=== PATIENT | female | born 1960 | race Caucasian/White ===

== ENCOUNTER 2023-10-03 08:57 | Outpatient (CLI) | payer MEDICARE, MEDICAID, SELFPAY ==
--- NOTE | 2023-10-03 09:15 | CRLHL7_ITS ---
For Patients: As a result of the Century Cures Act, medical imaging exams and procedure reports are released immediately into your electronic medical record. You may view this report before your referring provider. If you have questions, please contact your health care provider. ULTRASOUND-GUIDED BREAST BIOPSY AND POST-BIOPSY DIGITAL MAMMOGRAM FOR BIOPSY MARKER PLACEMENT CLINICAL HISTORY: Suspicious taller than wide mass RIGHT breast. COMPARISON STUDIES: 09/26/2023. TECHNIQUE: Real-time ultrasound with image documentation was used for targeting the breast lesion. Core biopsy specimens were obtained using an automated gun with an 18-gauge biopsy needle. Post-biopsy CC and ML digital mammograms were obtained to document position of the biopsy marker. CONSENT and TIME OUT: The procedure, risks, and alternatives were explained to the patient and a consent was signed. [place] Protocol was followed including pre-procedure verification that relevant information/documentation was available, reviewed and properly matched to the patient; consent accurate and complete; and equipment and supplies available. Time Out was conducted just prior to starting procedure to verify the four required elements: patient identity, correct side/site marked (if applicable), procedure, relevant images/results properly labeled and displayed (if applicable). PROCEDURE: The patient was positioned supine on the ultrasound table. The breast was prepped with ChloraPrep. 7 cc of 1 percent lidocaine used for local anesthesia. Core samples were obtained. A sterile metal biopsy clip was placed percutaneously to liliana the lesion position within the breast. The specimens were placed in 10% formalin and sent to the pathology department. Pressure was held on the biopsy site until all bleeding subsided. The skin incision was closed with Steri-Strips. An ice pack was positioned over the biopsy site. Post-biopsy instructions were reviewed with the patient, and a written copy was given to her. LATERALITY: RIGHT breast. LESION: Hypoechoic and shadowing taller than wide mass measuring 11 x 7 x 7 millimeters at 1 o`clock 7 cm from the nipple. SUSPICION FOR MALIGNANCY: High. NUMBER OF SAMPLES: 5. BIOPSY CLIP SHAPE: Oval. PROXIMITY OF CLIP TO TARGET: Within the lesion. IMPRESSION: Ultrasound-guided breast biopsy. When the pathology report is available, an addendum to this report will be made. ACR not applicable Dictated by Steven Jacome MD @ 10/03/2023 10:16:00 AM jj/Dictated by: Steven Jacome MD @ 10/03/2023 10:16:00 AM (Electronically Signed)
--- NOTE | 2023-10-03 10:00 | CRLHL7_ITS ---
For Patients: As a result of the Century Cures Act, medical imaging exams and procedure reports are released immediately into your electronic medical record. You may view this report before your referring provider. If you have questions, please contact your health care provider. PLEASE SEE ULTRASOUND-GUIDED RIGHT BREAST BIOPSY PERFORMED SAME DAY CRL:[email or web address] busby/Dictated by: Steven Jacome MD @ 10/03/2023 10:16:00 AM (Electronically Signed)
== END 2023-10-03 08:58 | disposition home or self-care (01) ==
LOC: US 09:01
PROVIDERS: PCP Family Medicine; Visit Provider Family Medicine
DX: N63.10 Unspecified lump in the right breast, unspecified quadrant (principal); C50.911 Malignant neoplasm of unspecified site of right female breast; R92.8 Other abnormal and inconclusive findings on diagnostic imaging of breast
CPT/HCPCS: 19083; 77065; 88305; 88342; 88360; 88361; A4648; A4649

== ENCOUNTER 2023-10-19 08:35 | Day surgery (SDC) | payer MEDICARE, MEDICAID, SELFPAY ==
--- OUTSIDE RECORDS SUMMARY | 2023-10-19 08:39 | XMS_ITS | Clinical Summary ---
Author Organization [email or web address] [facility] Address [address] Care Team Providers Care Cafeteria Supervisor Name Role Phone Netta Mishra MD Primary Care Provider [phone] Allergies No known active allergies Medications Medication Sig Dispensed Refills Start Date End Date Status acetaminophen (TYLENOL EXTRA STRGTH) 500 mg tabletIndications:A cute postoperative pain Take 2 tablets by mouth 3 times daily. Max acetaminophen dose: 4000mg in 24 hrs. 50 tablet 11/15/2019 Active WalkerIndications:A cute postoperative pain Rolling walker for home use for 99 months. 1 Device 11/16/2019 Active ARIPiprazole (ABILIFY) 20 mg tabletIndications:G AD (generalized anxiety disorder),Major depressive disorder with current active episode, unspecified depression episode severity, unspecified whether recurrent Take 1 Tablet (20 mg) by mouth once daily. 90 Tablet 09/07/2023 Active benztropine (COGENTIN) 0.5 mg tabletIndications:E xtrapyramidal symptom Take 1 Tablet (0.5 mg) by mouth two times daily. 180 Tablet 09/07/2023 Active FLUoxetine (PROZAC) 40 mg capsuleIndications: IVETTE (generalized anxiety disorder),Major depressive disorder with current active episode, unspecified depression episode severity, unspecified whether recurrent Take 1 Capsule (40 mg) by mouth once daily. 100 Capsule 3 09/07/2023 Active gabapentin (NEURONTIN) 300 mg capsuleIndications: Lumbar radiculopathy Take 1 Capsule (300 mg) by mouth at bedtime. 30 Capsule 11 09/07/2023 Active levothyroxine (SYNTHROID) 175 mcg tabletIndications:H ypothyroidism (acquired) Take 1 Tablet (175 mcg) by mouth before breakfast. 90 Tablet 09/07/2023 Active atorvastatin (LIPITOR) 10 mg tabletIndications:H yperlipidemia, unspecified hyperlipidemia type Take 1 Tablet (10 mg) by mouth at bedtime. 100 Tablet 3 09/07/2023 Active Active Problems Problem Noted Date Diagnosed Date STENOSIS, LUMBAR W NEUROGENIC CLAUDICATION 11/11 Anxiety and depression 11/12/2019 Chronic midline low back pain without sciatica 0 09/25/2019 Left leg weakness 09/25/2019 Hypothyroidism Resolved Problems Problem Noted Date Diagnosed Date Resolved Date Spinal stenosis 09/25/2019 11/12/2019 Anxiety 11/12/2019 Depression 11/12/2019 Encounters Date Type Department Care Team Description 10/18/2023 Telephone [facility] [[email or web address] [address] [place] [address] Robina Reynaga MD Outside Order 10/16/2023 8:20 AM CDT Preop Visit [facility] [[email or web address] [address] [place] [address] Aliyah Medina DO Preoperative Exam (10/19/23, [facility], Dr. Reynaga) 10/16/2023 Travel 10/10/2023 4:00 PM CDT Office Visit [address] [place] [address] Robina Reynaga MD Consult (Breast cancer) 10/10/2023 Travel 10/03/2023 Lab Requisition [facility] [phone] Unknown, Doctor 10/03/2023 Orders Only [facility] [[email or web address]] [address] [place] [address] Netta Mishra MD 3 scans: (3-Ord) DANIELE US GUIDED BREAST BIOPSY RT, 10/03/2023 09/26/2023 2:30 PM CDT Ancillary Procedure [facility] [[email or web address]] [address] [place] [address] 09/26/2023 2:00 PM CDT Ancillary Procedure [facility] [[email or web address]] [address] [place] [address] 09/26/2023 Ancillary Orders [facility] [[email or web address]] [address] [place] [address] Netta Mishra MD 09/26/2023 Travel 09/14/2023 3:20 PM CDT Ancillary Procedure [facility] [[email or web address]] [address] [facility] [facility] [address] 09/14/2023 Travel 09/08/2023 Telephone [facility] [[email or web address]] [address] [facility] [place] [address] Netta Mishra MD Results 09/07/2023 2:20 PM CDT Office Visit [facility] [[email or web address]] [address] [facility] [address] Netta Mishra MD Medication Management 09/07/2023 Travel 08/30/2023 Refill [facility] [[email or web address]] [address] [facility] [address] Netta Mishra MD Refill Request (Aripiprazole) 07/31/2023 Refill [facility] [[email or web address]] [address] [facility] [place] [address] Netta Mishra MD Refill Request (Aripiprazole, Levothyroxine, Benztropine, Fluoxetine) from Last 3 Months Immunizations Name Administration Dates Next Due COVID-19 vaccine (Dajuan-J&J) GIOVANNA LEE COVID-19 vaccine (MettlBio NTech 30mcg/0.3mL) 12YO+ BIVALENT GIOVANNA LEE 07/28/2022 COVID-19 vaccine (MettlBio NTech 30mcg/0.3mL) 12YO+ AV-SUCROSE GIOVANNA LEE 07/21/2021 Influenza, IIV4 02/21/2019 Tdap 07/17/2020 Zoster (Shingrix-RZV, recombinant) 07/21/2021, Family History Medical History Relation Name Comments Diabetes Brother Diabetes Father Cancer-breast No Family History Relation Name Status Comments Brother Father Social History Tobacco Use Types Packs/Day Years Used Date Smoking Tobacco: Former Cigarettes 1 15 1 983 - 1998 Smokeless Tobacco: Never Tobacco Cessation:Counseling Given: Yes Alcohol Use Standard Drinks/Week Comments Not Currently 0 (1 standard drink = 0.6 oz pur e alcohol) PHQ-2 Answer Date Recorded PHQ-2 TOTAL SCORE 0 09/07/2023 Social Connections Answer Date Recorded Frequency of Communication with Friends and Fami ly 0 09/07/2023 Financial Resource Strain Answer Date R ecorded Difficulty of Paying Living Expenses 3 09/07/2023 Difficulty of Paying Living Expenses Not on file 09/07/2023 Food Insecurity Answer Date Recorded Worried About Running Out of Food in the Last Ye ar 1 09/07/2023 Transportation Needs Answer Date Record ed Lack of Transportation (Medical) 1 09/07/2023 Housing Stability Answer Date Recorded Unable to Pay for Housing in the Last Year 1 09/07/2023 Sex and Gender Information Value Date Recorded Sex Assigned at Not on file Gender Identity Not on file Sexual Orientation Not on file Obstetrics History Last Filed Vital Signs Vital Sign Reading Time Taken Comments Blood Pressure 138/73 10/16/2023 8:15 AM CDT Pulse 80 10/16/2023 8:15 AM CDT Temperature 36.8 ??C (98.2 ??F) 10/16/2023 8:15 AM CD T Respiratory Rate 16 11/16/2019 7:50 AM CDT Oxygen Saturation 97% 10/16/2023 8:15 AM CDT Inhaled Oxygen Concentration - - Weight 126.1 kg (278 lb) 10/16/2023 8:15 AM CDT Height 177.8 cm (5' 10) 10/16/2023 8:15 AM CDT Body Mass Index 39.89 10/16/2023 8:15 AM CDT Plan of Treatment Health Maintenance Due Date Last Done Comments Pneumococcal series for age 6-64 (1 of 2 - PCV) 1966 Fecal testing sDNA-FIT (Cologuard) for age 45-75 2005 COVID-19 vaccine series (2022- season) 2022 07/28/2022, 07/21/2021, 08/01/2020 Influenza for age 50-64 10/29/2023 02/21/2019 Depression screening for age 12+ 09/07/2024 09/08/2023, 09/07/2023, 07/28/2022, Additional history exists Mammogram for age 45-75 09/25/2024 09/26/19 24, 09/14/2023, 08/26/2022, Additional history exists BMI (ht and wt on same day) for age 18+ 10/15/2024 10/16/2023, 07/28/2022, 07/21/2021, Additional history exists Lipids for age 45-75 09/06/2028 09/07/2023, 07/28/2022, 07/21/2021, Additional history exists Tetanus booster 07/17/2030 07/17/2020 Hepatitis C screening for ag e 18-79 Completed 07/17/2020 Tdap Completed 07/17/2020 Zoster (shingles) series for age 50+ Completed 07/21/2021, 07/17/2020 HIV for age 15-65 Completed 07/28/2022 Pap test for age 21-65 Discontinued Medical Devices Implanted Type Area Hand Cloth Folder Device Identifier Shelf Expiration Date Model / Serial / Lot [id number] 1-4mm 60cc Medtronic Fine Canclls Freeze Dried Implanted:Qty: 1 on 11/12/2019 by Bonilla Gee MD at [facility] Explanted:at [facility] (Quantity not on file) Spine Medtronic Spine/Ortho 04/07/2024 [id number]# / [id number] / Screw Lmbr Post 8.5x45mm Solera 5.5/6 Va Cocr - [id number] Implanted:Qty: 2 on 11/12/2019 by Bonilla Gee MD at [facility] Spine Medtronic Spine/Ortho [id number]# / / Spacer Lmbr 60y40uf Capstone Tlif Peek - [id number] Implanted:Qty: 1 on 11/12/2019 by Bonilla Gee MD at [facility] Spine Medtronic Spine/Ortho [id number]# / / [id number] ne Matrix 3cc Linda Dbf Putty Dbm Implanted:Qty: 1 on 11/12/2019 by Bonilla Gee MD at [facility] Explanted:at [facility] (Quantity not on file) Spine Medtronic Spine/Ortho 10/06/2021 [id number] / [id number] / [id number] 1-4mm 60cc Medtronic Fine Canclls Freeze Dried Implanted:Qty: 1 on 11/12/2019 by Bonilla Gee MD at [facility] Explanted:at [facility] (Quantity not on file) Spine Medtronic Spine/Ortho 04/07/2024 [id number]# / [id number] / [id number] ne Matrix 5cc Major Plus Paste Dbm Implanted:Qty: 1 on 11/12/2019 by Bonilla Gee MD at [facility] Explanted:at [facility] (Quantity not on file) Spine Medtronic Spine/Ortho 05/19/2021 [id number]# / [id number] / Spacer Peek Md 16mm 8deg Perimeter Alif Peek - [id number] Implanted:Qty: 1 on 11/12/2019 by Bonilla Gee MD at [facility] Spine Medtronic Spine/Ortho 04/27/2023 [id number]# / / [id number] Spacer Lmbr Md 8mm 8deg Perimeter Alif Peek - [id number] Implanted:Qty: 1 on 11/12/2019 by Bonilla Gee MD at [facility] Spine Medtronic Spine/Ortho 01/12/2023 [id number]# / / [id number] Set Screw Lmbr Ant 5.5mm Solera Break Off - [id number] Implanted:Qty: 9 on 11/12/2019 by Bonilla Gee MD at [facility] Spine Medtronic Spine/Ortho [id number]# / / Screw Lmbr Post 6.5x45mm Solera 5.5/6 Va Cocr - [id number] Implanted:Qty: 2 on 11/12/2019 by Bonilla Gee MD at [facility] Spine Medtronic Spine/Ortho [id number]# / / Screw Lmbr Post 7.5x45mm Solera 5.5/6 Va Cocr - [id number] Implanted:Qty: 5 on 11/12/2019 by Bonilla Gee MD at [facility] Spine Medtronic Spine/Ortho [id number] 5# / / Guicho Lmbr 500x5.5mm Solera 5.5/6 Stra Titnm Alloy - [id number] Implanted:Qty: 1 on 11/12/2019 by Bonilla Gee MD at [facility] Spine Medtronic Spine/Ortho [id number] # / / Explanted Type Area Hand Cloth Folder Device Identifier Shelf Expiration Date Model / Serial / Lot Explant Explanted:Qty: 1 on 11/12/2019 at [facility] Description:2 RODS, 6 SCREWS , 6 SET SCREWS Procedures Procedure Name Priority Date/Time Associated Diagnosis Comments LAB TRACKING EVENT Routine 10/03/2023 9: 45 AM CDT PATH BREAST CORE BIOPSY Routine 10/03/2023 9:45 AM CDT XR MAMMO POST CLIP PLCMT RT Routine 10/03/2023 12:00 AM CDT Abnormal mammogram US BIOPSY BREAST NEEDLE W DONATO W GUIDE RIGHT ANDREY 10/03/2023 12:00 AM CDT Abnormal mammogram US BREAST UNILATERAL RIGHT LIMITED ANDREY 09/26/2023 2:33 PM CDT Abnormal mammogram XR MAMMO EDMOND UNI ADDL VIEWS RIGHT ANDREY 09/26/2023 2:14 PM CDT Abnormal mammogram XR MAMMO BILAT SCREENING Routine 09/14/2023 3:24 PM CDT Visit for screening mammogram GLUCOSE, RANDOM Routine 09/07/2023 3:12 PM CDT Diabetes mellitus screening LIPID PANEL W REFLEX MEASURED LDL Routine 09/07/2023 3:12 PM CDT Hyperlipidemia, unspecified hyperlipidemia type LC HIV-1/O/2, 4TH GENERATION Routine 07/28/2022 3:00 PM CDT Screening for HIV (human immunodeficiency virus) ANTI HCV Add On 07/17/2020 1:34 PM CDT Routine general medical examination at a health care facility from Last 3 Months or Most Recently Relevant to Health Maintenance Results * LAB TRACKING EVENT (10/03/2023 9:45 AM CDT) Other (Other) Client Collect / Unknown 10/03/2023 9:45 AM CDT 10/03/2023 10:08 PM CDT Doctor Unknown LAB B[facility] [address] [place] [address], * PATH BREAST CORE BIOPSY (10/03/2023 9:45 AM CDT) Case Report Pathology Report ?Case: [id number] ? Authorizing Provider: ??Unknown, Doctor ?Collected: ? 10/03/2023 0945 ? Ordering Location: ? [facility] ?Received: ?10/04/2023 09 ? Pathologist: ? Jerrica Krishnamurthy, ? MD ? Specimen: ?Right Breast Core Ultrasound Biopsy ? 10/06/2023 10:19 AM [facility] Amendment 10/06/2023 - Amendment issued to incorporate ancillary studies. 10/06/2023 10:19 AM [facility] Final Diagnosis A) RIGHT BREAST, 1:00, 7 CM FROM NIPPLE, ULTRASOUND-GUIDED CORE BIOPSY: 1. 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 a. Lul grade: II of III; Vallecito score: 6 of 9 ?? b. Angio-lymphatic invasion: Absent ?? c. Associated DCIS: Present ?? d. Subtype: Cribriform and Solid ? e. Grade of DCIS: 2 of 3 2. Breast Ancillary Testing: ?a. Hormone Receptors: ?Estrogen receptor: Positive (97%, strong staining) ?Progesterone receptor: Positive (86%, moderate staining) ?b. HER2 by IHC: Negative (1+ by manual morphometry) ?c. Ki-67: 11% 10/06/2023 10:19 AM [facility] Amendment electronically signed by Simba Aguero MD on 10/06/2023 at 10:19 AM Comment A) This is an image-guided breast biopsy. The pathologic findings should be correlated with radiologic and clinical findings prior to treatment decisions. Case seen in consultation with Dr. Aguero. 10/06/2023 10:19 AM [facility] Clinical Information 11 x 7 x 7 mm, irregular, spiculated and hypoechoic right breast mass at 1:00, 7 cm from the nipple. Clip shape: Oval (within lesion). 10/06/2023 10:19 AM [facility] Gross Description A) Label: Patient's name and right breast 1:00 7 cm FN Description: 5 Fibrofatty core biopsies Size: 1.1-1.7 cm in length by 0.2 cm in diameter Ink color: Green The specimen is submitted in toto in one cassette. Cold ischemic time: Less than 60 minutes, meets current ASCO/CAP guidelines. ?? The specimen was fixed in formalin for a minimum of 6 hours and not longer than 72 hours. TLF 10/04/2023 10/06/2023 10:19 AM [facility] Microscopic Description The final diagnosis is based on microscopic examination of appropriate sections of all specimens. A) The presence of green ink is confirmed on tissue sections. An E-cadherin immunohistochemical stain was performed on block A1 with appropriate controls and shows strong, diffuse membranous staining within the tumor cells, supporting a ductal phenotype. 10/06/2023 10:19 AM [facility] SYNOPTIC REPORTING Breast Biomarker Reporting Template BREAST BIOMARKER REPORTING TEMPLATE - A Protocol posted: 02/08/2023 ?? Test(s) Performed: ? Estrogen Receptor (ER) Status: ?Positive (greater than 10% of cells demonstrate nuclear positivity) ? Percentage of Cells with Nuclear Positivity: ?97 % ? Average Intensity of Staining: ?Strong ? Test Type: ?Laboratory-develope d test ? Primary Antibody: ?SP1 ?? Test(s) Performed: ? Progesterone Receptor (PgR) Status: ?Positive ? Percentage of Cells with Nuclear Positivity: ?86 % ? Average Intensity of Staining: ?Moderate ? Test Type: ?Laboratory-develope d test ? Primary Antibody: ?16 ?? Test(s) Performed: ? HER2 by Immunohistochemistry: ?Negative (Score 1+) ? Test Type: ?Laboratory-develope d test ? Primary Antibody: ?4B5 ?? Test(s) Performed: ?Ki-67 ? Ki-67 Percentage of Positive Nuclei: ?11 % ? Primary Antibody: ?MIB1 ?? Cold Ischemia and Fixation Times: ?Meet requirements specified in latest version of the ASCO / CAP Guidelines ?? Testing Performed on Block Number(s): ?A1 METHODS ?? Fixative: ?Formalin ?? Image Analysis: ?Performed ? Method: ?Aperio morphometric analysis ? Biomarkers Scored by Image Analysis: ?ER ? Biomarkers Scored by Image Analysis: ?PgR ? Biomarkers Scored by Image Analysis: ?Ki-67 ?? Comment(s): ?Ki67 11% out of 1,478 nuclei analyzed 10/06/2023 10:19 AM CDT [facility] Additional Information Patients with breast cancers that are HER2 IHC 3+ or IHC 2+/LINA amplified may be eligible for several therapies that disrupt HER2 signaling pathways. Invasive breast cancers that test 'HER2-negative' (IHC 0, 1+ or 2+/LINA not-amplified) are more specifically considered 'HER2-negative for protein overexpression/gene amplification' since non-overexpressed levels of the HER2 protein may be present in these cases. Patients with breast cancers that are HER2 IHC 1+ or IHC 2+/LINA not amplified may be eligible for a treatment that targets non-amplified/non-ove rexpressed levels of HER2 expression for cytotoxic drug delivery (IHC 0 results do not result in eligibility currently). Interpreted at [facility], Central Laboratory - [address], [place] [address] Immunohistochemistry controls were reviewed and approved by the pathologist during this examination. 10/06/2023 10:19 AM CDT [facility] Other (Right Breast Core Ultrasound Biopsy) 10/03/2023 9:45 AM CDT 10/04/2023 9:07 AM CDT Doctor Unknown PATHOLOGY/CYTOLOGY [facility] [address] [place] [address], [place] * US BIOPSY BREAST NEEDLE W DONATO W GUIDE RIGHT (10/03/2023 12:00 AM CDT) Anatomical Region Laterality Modality Breast Right Right Ultrasound Netta Mishra MD US * XR MAMMO POST CLIP PLCMT RT (10/03/2023 12:00 AM CDT) Anatomical Region Laterality Modality BREASTS N/A Mammography Netta Mishra MD MAMMO * US BREAST UNILATERAL RIGHT LIMITED (09/26/2023 2:33 PM CDT) Anatomical Region Laterality Modality BREASTS, Breast Right Right Ultrasound Narrative 09/26/2023 3:57 PM CDT For Patients: As a result of the Cures Act, medical imaging exams and procedure reports are released immediately into your electronic medical record. ??You may view this report before your referring provider. ?? If you have questions, please contact your health care provider. RIGHT BREAST ULTRASOUND, 09/26/2023 PLEASE SEE [id number] FOR DIGITAL RIGHT MAMMOGRAM SAME DAY. Netta Mishra MD US * XR MAMMO EDMOND UNI ADDL VIEWS RIGHT (09/26/2023 2:14 PM CDT) Anatomical Region Laterality Modality BREASTS, Breast Right Mammograph y 09/26/2023 2:50 PM CDT Impressions 09/26/2023 3:57 PM CDT Suspicious 11 millimeter mass RIGHT breast 1 o'clock 7 cm from the nipple. RECOMMENDATIONS: Ultrasound-guided core needle biopsy. Results and recommendations discussed with the patient. BI-RADS Category 4: Suspicious Dictated by: Steven Jacome MD @09/26/2023 2:50:20 PM / EVAN:kehinde PATIENTS: You will also receive a letter with your examination results in an easy to read format. ??If you have questions about your results, please contact your referring provider. Narrative 09/26/2023 3:57 PM CDT For Patients: As a result of the Cures Act, medical imaging exams and procedure reports are released immediately into your electronic medical record. ??You may view this report before your referring provider. ?? If you have questions, please contact your health care provider. ADDITIONAL VIEWS RIGHT DIGITAL MAMMOGRAM USING TOMOSYNTHESIS AND COMPUTER-AIDED DETECTION, 09/26/2023 RIGHT BREAST ULTRASOUND, 09/26/2023 CLINICAL HISTORY: RIGHT breast mass/asymmetry. COMPARISON: 09/14/2023. TECHNIQUE: Digital RIGHT mammogram in two projections with computer-aided detection. Tomosynthesis was used in this interpretation. Real-time ultrasound imaging of RIGHT breast with imaging documentation. BREAST COMPOSITION: There are areas of scattered fibroglandular density. FINDINGS: 3D spot compression CC/MLO RIGHT breast mammogram images submitted. Suspicious mass with architectural distortion RIGHT breast upper inner quadrant. No suspicious calcifications. Targeted RIGHT breast ultrasound 1 o'clock 7 cm from the nipple performed. In this location, there is a taller than wide spiculated hypoechoic mass measuring 11 x 7 x 7 millimeters. Netta Mishra MD MAMMO * XR MAMMO BILAT SCREENING (09/14/2023 3:24 PM CDT) Anatomical Region Laterality Modality BREASTS, Breast Left, Breast Right Bilateral Mammography 09/14/2023 3:55 PM CDT Impressions 09/14/2023 4:14 PM CDT RIGHT breast asymmetry/mass. RECOMMENDATIONS: Additional mammographic views of the RIGHT breast including 3D spot-compression CC/MLO. RIGHT breast ultrasound may also be required. A member of the breast health care team will contact the patient to schedule the required additional imaging appointment(s). BI-RADS Category 0: Incomplete: Need Additional Imaging Evaluation and/or Prior Mammograms for Comparison Dictated by: Steven Jacome MD @09/14/2023 3:55:02 PM/shawna PATIENTS: You will also receive a letter with your examination results in an easy to read format. ??If you have questions about your results, please contact your referring provider. Narrative 09/14/2023 4:14 PM CDT For Patients: As a result of the 21st Century Cures Act, medical imaging exams and procedure reports are released immediately into your electronic medical record. ??You may view this report before your referring provider. ?? If you have questions, please contact your health care provider. BILATERAL DIGITAL SCREENING MAMMOGRAM WITH COMPUTER-AIDED DETECTION AND TOMOSYNTHESIS 09/14/2023 CLINICAL HISTORY: Routine screening exam. COMPARISON: 08/26/2022, 08/25/2021, 08/03/2020, 07/24/2020. TECHNIQUE: Digital mammogram in CC and MLO projections including computer-aided detection (CAD). Tomosynthesis was used in this interpretation. BREAST COMPOSITION: There are scattered areas of fibroglandular density. FINDINGS: RIGHT Breast: Focal asymmetric density upper RIGHT breast 7 cm from the nipple. LEFT Breast: No suspicious findings. Netta Mishra MD MAMMO * (ABNORMAL) LIPID PANEL W REFLEX MEASURED LDL (09/07/2023 3:12 PM CDT) CHOLESTEROL,TOTAL 320(H) 100 - 199 mg/dL 09/08/2023 1:27 AM CDT [facility] Comment: Cholesterol, Total Reference Ranges Desirable <200 mg/dL Borderline 200-239 mg/dL High >=240 mg/dL TRIGLYCERIDES 306(H) <150 mg/dL 09/08/2023 1:27 AM CDT [facility] HDL CHOLESTEROL 40(L) >40 mg/dL 1:27 AM CDT [facility] NON-HDL CHOLESTEROL 280(H) <145 mg/dl 09/08/2023 1:27 AM T [facility] CHOL/HDL RATIO 8.00(H) <4.50 09/08/2023 1:27 AM CDT [facility] LDL CHOLESTEROL 219(H) <=130 mg/dL 09/08/2023 1:27 AM T [facility] VLDL CHOLESTEROL 61(H) <=30 mg/dL 09/08/2023 1:27 AM T [facility] PROVIDER ORDERED STATUS RANDOM 09/08/2023 1:27 AM T [facility] Blood BLOOD SPECIMEN / Unknown Venipuncture / Unknown 09/07/2023 3:12 PM CDT 09/07/2023 3:13 PM CDT Netta Mishra MD CHEMISTRY [facility] [address] [place] [address], [place] * GLUCOSE, RANDOM (09/07/2023 3:12 PM CDT) GLUCOSE,RANDOM 85 70 - 139 mg/dL 09/07/2023 3:21 PM CDT [facility] Blood BLOOD SPECIMEN / Unknown Venipuncture / Unknown 09/07/2023 3:12 PM CDT 09/07/2023 3:13 PM CDT Netta Mishra MD CHEMISTRY Performing Organization Address City/[facility]/ZIP Co de Phone Number [facility] [address] [place] [address], [place] [phone] * LC HIV-1/O/2, 4TH GENERATION (07/28/2022 3:00 PM CDT) HIV Scr 4th Gen Non Reactive Non Reactive 07/30/2022 11:08 AM CDT [facility] Comment: HIV Negative HIV-1/HIV-2 antibodies and HIV-1 p24 antigen were NOT detected. There is no laboratory evidence of HIV infection. Blood BLOOD SPECIMEN / Unknown Venipuncture / Unknown 07/28/2022 3:00 PM CDT 07/28/2022 3:01 PM CDT Narrative [facility] ([facility] - 07/30/2022 11:08 AM CDT Performed at: ??[address] - [address] ??[phone] Liner Checker: Nadir Oliveros MD, Phone: ??[phone] Netta Mishra MD LABORATORY [facility] ([facility]) [address] [place] [phone], * ANTI HCV (07/17/2020 1:34 PM CDT) HEPATITIS C ANTIBODY Non-React aime Non-React aime 07/17/2020 10:22 PM CDT [facility] Comment:Antibodies to HCV no t detected; does not exclude the possibility of exposure to HCV. Blood BLOOD SPECIMEN / Unknown Venipuncture / Unknown 07/17/2020 1:34 PM CDT 07/17/2020 1:34 PM CDT Netta Mishra MD SEND OUTS [facility] [address] [place] [address], from Last 3 Months or Most Recently Relevant to Health Maintenance Advance Directives * Full Code (Latest Code Status on File) Date Activated Date Inactivated Comments 11/12/2019 4:09 PM 11/16/2019 5:32 PM Question Answer Comments Code Status Discussion: Not Discussed Care Teams Cafeteria Supervisor Relationship Specialty Start Date End Date Netta Mishra MD [address] [place] [address] PCP - General Family Practice 05/06/19
[2023-10-19 09:02] VITALS: BMI 39.8
[2023-10-19 09:06] VITALS: BP 141/78; PULSE 84; RESP 20; TEMP 36.5
--- NOTE | 2023-10-19 09:08 | SUR.PREOP ---
pt appears to have poor personal hygeine, very long toenails, unkempt
[2023-10-19] MEDS: LACTATED RINGERS 1000 ML 1,000 ML 100 ML IV (09:10)
[2023-10-19] MEDS: SODIUM CHLORIDE 0.9 % (FLUSH) 10 ML SYRINGE IVF (09:21)
--- NOTE | 2023-10-19 10:00 | CRLHL7_ITS ---
For Patients: As a result of the Century Cures Act, medical imaging exams and procedure reports are released immediately into your electronic medical record. You may view this report before your referring provider. If you have questions, please contact your health care provider. INDICATION: Right-sided breast cancer. Injection for sentinel lymph node scintigraphy. PROCEDURE: Informed consent was obtained by the on-site staff. They discussed the risks and benefits of the procedure. The patient agreed to proceed. [place] Protocol: A. Preprocedure verification complete: Yes 1) Relevant information/documentation available, reviewed and properly matched to the patient; 2) Consent accurate and complete; 3) Equipment and supplies available. B. Site marking complete: Yes Site marked if not in continuous attendance with patient. C. TIME OUT completed: Yes Time Out was conducted just prior to starting procedure to verify the eight required elements: 1) Patient identity, 2) Consent accurate and complete, 3) Position, 4) Correct side/site marked (if applicable), 5) Procedure, 6) Relevant images/results properly labeled and displayed (if applicable), 7) Antibiotics/irrigation fluids (if applicable), 8) Safety precautions, 9) Laboratory results were reviewed. Utilizing sterile technique and 1% Xylocaine for local anesthetic, 500 microcuries of technetium-filtered sulfur colloid was injected within an intradermal location superolateral to the right nipple-areolar complex. The patient tolerated the injection well. No immediate complications were documented. No subsequent imaging. IMPRESSION: Technically successful right breast injection for sentinel lymph node scintigraphy. OSWALDO SAL M.D. Diagnostic/Nuclear Medicine Radiologist [email or web address] Transcribed: 12:[address]/Dictated by: Oswaldo Sal MD @ 10/19/2023 10:56:00 AM (Electronically Signed)
--- NOTE | 2023-10-19 10:03 | W.PM.H&PU ---
History & Physical Update History & Physical Update H&P Reviewed and patient assessed: No changes noted
--- NOTE | 2023-10-19 10:04 | P.GSOP_ITS ---
Operative Note Date of procedure: 10/19/23 Pre-op diagnosis: Right-sided invasive ductal breast cancer, ERPR positive, HER2 negative Post-op diagnosis: Same Type of Procedure: 1. Right lumpectomy 2. Right axillary sentinel node biopsy Indications: The patient is a 63-year-old female who was found on screening mammogram to have a mass in the right breast. This was biopsied and found to be invasive ductal carcinoma, ERPR positive, HER2 negative. We discussed options for management and she elected to proceed with lumpectomy and sentinel node biopsy. Procedure Description: After discussion of risks and benefits, the patient was brought to the operating room and placed supine on the operating table. General anesthesia was induced. 1 hr to incision, I injected radiotracer into the dermis the [right/left] breast just above the areola. 10 min prior to the incision I injected 3 ml isosulfan blue dye into the dermis above the areola. This was massaged for 3 min. Once this was completed, the area was prepped and draped sterilely. A time-out was then completed. I began on the right. Incision was made in the upper inner quadrant over the mass after injecting local anesthetic into the skin and subcutaneous tissue. Dissection was taken down into the subcutaneous tissue. The wire was then pulled into the incision. The breast tissue around the wire was dissected free using cautery down to fascia. The specimen was inked for margins and then sent to mammography and pathology. On mammographies, the clip and wire were noted. The lesion was seen on pathology however was close the superior margin. An additional rim of tissue at the superior aspect of the lumpectomy cavity was then removed. This was again inked for margins and sent to pathology in formalin. The lumpectomy cavity appeared hemostatic. Travis was placed within the wound. Clips were placed to liliana the margins of the lumpectomy cavity for radiation planning. Attention was then turned to the sentinel lymph node biopsy. Incision was made in the axilla after injecting local anesthetic into the skin and subcutaneous tissue. Incision was oriented just below the axillary hairline. Dissection was taken down into the subcutaneous fat. The probe was brought into the field. A strong signal was noted and dissection was taken down through the clavipectoral fascia into the axillary fat. The probe was used to identify a blue node and this was carefully dissected free of the surrounding fat using cautery. The signal was measured at 2100. The probe was placed back into the wound bed and there was a small blue lymphatic channel leading to an area which also had a strong signal. This was dissected free. Signal was measured ex vivo at 1500. The probe was placed back into the axilla. No further signal was noted, though there appeared to be a small lymph node that had been transected. This node was not blue. It was, however removed and sent with the axillary sentinel lymph nodes to pathology. There were no further blue lymphatics noted. Hemostasis again appeared excellent. Travis was placed in the axillary wound bed. The wounds were again examined and appeared to be hemostatic. They were closed with 3-0 Vicryl dermal and 4-0 Monocryl running subcuticular suture. Sterile d ressing was applied. Instrument sponge and needle counts were correct. The patient tolerated the procedure well. ? The patient was then woken and transported to the recovery area in stable condition. Findings: 1. Right breast mass with the clip in wire noted on mammography in the lumpectomy specimen 2. Right breast mass lumpectomy specimen with close superior margin, reexcised Anesthesia: MAC Surgeon: Robina Reynaga MD Estimated blood loss (mL): 10 Additional Specimen Information: 1. Right breast lumpectomy 2. Right breast re-excision superior margin 3. Right axillary sentinel lymph nodes Condition: stable Disposition: same day [place] Node Biopsy for Breast Cancer Operation Performed with Curative Intent: Yes Tracers used to Identify sentinel nodes in the upfront surgery (non-neoadjuvant) setting: Dye and Radioactive Tracer Tracers used to identify sentinel nodes in the neoadjuvant setting: N/A All nodes (colored or non-colored) present at the end of a dye filled lymphatic channel were removed: Yes All significantly radioactive nodes were removed: Yes All palpably suspicious nodes were removed: Yes Biopsy proven positive nodes marked with clips prior to chemotherapy were identified and removed: Not Applicable
--- NOTE | 2023-10-19 10:15 | CRLHL7_ITS ---
For Patients: As a result of the Century Cures Act, medical imaging exams and procedure reports are released immediately into your electronic medical record. You may view this report before your referring provider. If you have questions, please contact your health care provider. RIGHT BREAST WIRE LOCALIZATION USING ULTRASOUND GUIDANCE CLINICAL HISTORY: Biopsy-proven malignancy. LATERALITY: RIGHT breast. LESION: Hypoechoic shadowing mass measuring 11 x 7 x 7 mm 1 o`clock 7 cm from the nipple RIGHT breast. LOCALIZATION WIRE: [place] hookwire. TECHNIQUE: The localization wire was placed using real-time ultrasound guidance with image documentation. Cranial-caudal and medial-lateral digital mammograms were obtained after localization wire placement. CONSENT and TIME OUT: The procedure, risks, and alternatives were explained to the patient and a consent was signed. [place] Protocol was followed including pre-procedure verification that relevant information/documentation was available, reviewed and properly matched to the patient; consent accurate and complete; and equipment and supplies available. Time Out was conducted just prior to starting procedure to verify the four required elements: patient identity, correct side/site marked (if applicable), procedure, relevant images/results properly labeled and displayed (if applicable). PROCEDURE: The skin was prepped with ChloraPrep and 6 cc of 1% lidocaine was injected for local anesthesia. The localization wire was placed within or near the targeted breast lesion using ultrasound guidance. The patient tolerated the procedure well. PROXIMITY OF WIRE TO LESION: The wire is located within the lesion adjacent to the clip. IMPRESSION: Successful breast wire localization. ACR not applicable Dictated by Steven Jacome MD @ 10/19/2023 11:26:00 AM /jeni/adalberto SP/Dictated by: Steven Jacome MD @ 10/19/2023 11:25:00 AM (Electronically Signed)
--- NOTE | 2023-10-19 11:00 | CRLHL7_ITS ---
For Patients: As a result of the Cures Act, medical imaging exams and procedure reports are released immediately into your electronic medical record. You may view this report before your referring provider. If you have questions, please contact your health care provider. RIGHT BREAST SPECIMEN CLINICAL HISTORY: RIGHT breast cancer. COMPARISON: 09/26/2023. FINDINGS: Two views of the RIGHT breast specimen submitted. The specimen contains the localization wire, the biopsied mass and the biopsy clip. IMPRESSION: Specimen contains the localization wire, the biopsied mass and the biopsy clip. ACR not applicable. Dictated by Steven Jacome MD @ 10/20/2023 9:21:02 AM /jeni/charisma SP/Dictated by: Steven Jacome MD @ 10/20/2023 9:21:00 AM (Electronically Signed)
--- NOTE | 2023-10-19 11:00 | CRLHL7_ITS ---
For Patients: As a result of the Century Cures Act, medical imaging exams and procedure reports are released immediately into your electronic medical record. You may view this report before your referring provider. If you have questions, please contact your health care provider. PLEASE SEE RIGHT BREAST ULTRASOUND-GUIDED WIRE LOCALIZATION OF SAME DAY FOR FULL REPORT. CRL:sp/francoise SP/Dictated by: Steven Jacome MD @ 10/19/2023 11:20:00 AM (Electronically Signed)
[2023-10-19] MEDS: ISOSULFAN BLUE 5 ML VIAL INJECTION (11:30)
[2023-10-19] MEDS: CEFAZOLIN 2 GM INJ IVP (11:35)
[2023-10-19] MEDS: BUPIVACAINE 0.25% 30 ML INJECTION (11:50)
[2023-10-19] MEDS: LIDOCAINE 1% MDV 20 ML INJECTION (11:50)
--- NOTE | 2023-10-19 11:51 | W.ANESCHARGE ---
Anesthesia Charges Start Date/Time Anesthesia Start Date: 10/19/23 Anesthesia Start Time: 11:25 Stop Date/Time Anesthesia Stop Date: 10/19/23 Anesthesia Stop Time: 13:13
[2023-10-19 13:15] VITALS: BP 121/70; PULSE 69; RESP 16; TEMP 36.3; O2SAT 92
--- NOTE | 2023-10-19 13:15 | W.ANESCHARGE ---
Anesthesia Charges Start Date/Time Anesthesia Start Date: 10/19/23 Anesthesia Start Time: 11:25 Stop Date/Time Anesthesia Stop Date: 10/19/23 Anesthesia Stop Time: 13:13
--- NOTE | 2023-10-19 13:17 | W.ANESCHARGE ---
Anesthesia Charges Start Date/Time Anesthesia Start Date: 10/19/23 Anesthesia Start Time: 11:25 Stop Date/Time Anesthesia Stop Date: 10/19/23 Anesthesia Stop Time: 13:13
[2023-10-19 13:30] VITALS: BP 136/69; PULSE 67; RESP 16; O2SAT 93
[2023-10-19 13:46] VITALS: BP 134/71; PULSE 74; RESP 16; TEMP 36.3; O2SAT 93
--- NOTE | 2023-10-19 14:12 | SUR.PHASEII ---
Noted pt clothing very dirty and damp. underwear appeared to be smeared with stool.
== END 2023-10-19 14:30 | disposition home or self-care (01) ==
PROVIDERS: PCP Family Medicine; Visit Provider Surgery
PROC: (CPT 19301; principal; 2023-10-19 11:00)
DX: C50.211 Malignant neoplasm of upper-inner quadrant of right female breast (principal); Z17.0 Estrogen receptor positive status [ER+]
CPT/HCPCS: 19301; 38525; 00404; 01610; 19285; 38792; 77065; 88307; A9541; C1769; J0665; J0690; J1100; J2250; J2405; J2704; J3010; J7120

== ENCOUNTER 2023-12-13 14:46 | Outpatient (CLI) | payer MEDICARE, MEDICAID, SELFPAY ==
--- OUTSIDE RECORDS SUMMARY | 2023-12-13 14:50 | XMS_ITS ---
Author Organization [facility] Address [address] [place] [address] Care Team Providers Care Administrative Manager Name Role Phone Unavailable Unavailable Unavailable Surgery Details Not on file Complications Check Surgery Details section. Procedure Estimated Blood Loss Check Surgery Details section. Procedure Findings Check Surgery Details section. Procedure Specimens Taken Check Surgery Details section.
--- OUTSIDE RECORDS SUMMARY | 2023-12-13 14:50 | XMS_ITS ---
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 Past Plans No past plan information found. Radiation Treatments * Plan Last Treated On Elapsed Days Fractions Treated Prescribed Fraction Dose Prescribed Total Dose [id number] 12/12/2023 1 2 of 5 520 cGy 2,600 cGy Reference Point Last Treated On Elapsed Days Session Dose Total Dose [id number] 12/12/2023 1 520 cGy 1,040 cGy
--- OUTSIDE RECORDS SUMMARY | 2023-12-13 14:50 | XMS_ITS | Encounter Summary ---
Author Organization [facility] Address [address] [place] [phone] Care Team Providers Care Garden Implement Mechanic Name Role Phone Unavailable Primary Care Provider Unavailabl e Reason for Referral * Radiation Therapy (Routine) - Closed Specialty Diagnoses / Procedures Referred By Chase colunga Referred To Contact Diagnoses Malignant Neoplasm Of Breast Upper Inner Quadrant Female Right (HCC) Procedures Initial Rad Onc Treatment Planning CT Simulation without IV Contrast Al Walker M.D. [address] [place] [address] Phone: tel: fax: [facility] Region Referral ID Status Reason Start Date Expiration Date Visits Re quested Visits Authorized [id number] Closed 11/27/2023 11/26/2024 1 1 Reason for Visit * Radiation Therapy (Routine) - Closed Specialty Diagnoses / Procedures Referred By Chase colunga Referred To Contact Diagnoses Malignant Neoplasm Of Breast Upper Inner Quadrant Female Right (HCC) Procedures Initial Rad Onc Treatment Planning CT Simulation without IV Contrast Al Walker M.D. [address] [place] [address] Phone: tel: fax: [facility] Region Referral ID Status Reason Start Date Expiration Date Visits Re quested Visits Authorized [id number] Closed 11/27/2023 11/26/2024 1 1 Encounter Details Date Type Department Care Team (Latest Contact Info) Description 11/30/2023 3:30 PM CDT - 11/30/2023 4:38 PM CDT Hospital Encounter Department of Radiation Oncology in [place], [place] [address] [place] [phone] Al Walker M.D. [address] [place] [address] Malignant Neoplasm Of Breast Upper Inner Quadrant Female Right (HCC) Social History Tobacco Use Types Packs/Day Years Used Date Smoking Tobacco: Former Cigarettes Q uit: 1997 Alcohol Use Standard Drinks/Week Comments Never 0 (1 standard drink = 0.6 oz pur e alcohol) Dental Answer Date Recorded Dental: Regular Dentist Unknown 11/17/19 24 Comments Unknown Sex and Gender Information Value Date Recorded Sex Assigned at Not on file Legal Sex Female 10:57 AM CDT Gender Identity Not on file Sexual Orientation Not on file documented as of this encounter Medications at Time of Discharge acetaminophen (TylenoL) 500 mg tablet Take 1,000 mg by mouth. 11/15/2019 ARIPiprazole (Abilify) 20 mg tablet Take 20 mg by mouth daily. atorvastatin (Lipitor) 10 mg tablet Take 10 mg by mouth at bedtime. benztropine (Cogentin) 0.5 mg tablet TAKE 1 TABLET (0.5 MG) BY MOUTH TWO TIMES DAILY. clotrimazole (Lotrimin) 1 % cream APPLY TOPICALLY TWICE A DAY FOR 4 WEEKS 11/20/2023 FLUoxetine (PROzac) 40 mg capsule Take 40 mg by mouth daily. gabapentin (Neurontin) 300 mg capsule Take 300 mg by mouth at bedtime. levothyroxine 175 mcg tablet TAKE 1 TABLET (175 MCG) BY MOUTH BEFORE BREAKFAST. documented as of this encounter Procedure Notes * Susie Sifuentes, RTT - 11/30/2023 3:30 PM CDTAssociated Order(s): Initial Rad Onc Treatment Planning CT Simulation without IV Contrast Pre-Procedure Diagnose(s): Malignant Neoplasm Of Breast Upper Inner Quadrant Female Right (HCC) Post-Procedure Diagnose(s): Malignant Neoplasm Of Breast Upper Inner Quadrant Female Right (HCC) Initial Rad Onc Treatment Planning CT Simulation without IV Contrast Performed by: Al Walker M.D. Authorized by: Al Walker M.D. Simulation was performed under physician supervision based on physician order in preparation for radiation therapy. Physician was immediately available to provide assistance and direction throughout the procedure. Written consent for treatment was completed or confirmed. The patient was appropriately identified and placed in the treatment position using the necessary immobilization to ensure a reproducible treatment position. Reference saini were placed to facilitate marking of isocenter. Area scanned:Chest Contrast used for the simulation procedure: None Patient position:head first supine Custom immobilization: Vac-ganesh Motion management: None Bolus: No CT guidance: Following positioning of the patient, a series of slices was obtained to be utilized in treatment planning. CT images were transferred to the mcTEL treatment planning system, after a reference isocenter was determined and marked. Segmentation and treatment planning will take place prior to treatment delivery. Patient set up and imaging was appropriate and completed without incident. Electric Motor Repair Supervisor use:No Cosigned by Al Walker M.D. at 11/30/2023 4:38 PM CDT Associated attestation - Al Walker M.D. - 11/30/2023 4:38 PM CDT I was available for the entirety of the procedure but only present for set up and image review. Signed by: Al Walker M.D. 11/30/23 4:38 PM CDT [facility] [place] documented in this encounter Plan of Treatment Upcoming Encounters Date Type Department Care Team (Late st Contact Info) Description 12/14/2023 11:45 AM CDT Appointment Department of Radiation Oncology in [address] [phone] Al Walker M.D. [address] [place] [phone] 12/14/2023 12:00 PM CDT Appointment Department of Radiation Oncology in [address] [phone] Al Walker M.D. [address] [place] [phone] 12/15/2023 11:45 AM CDT Appointment Department of Radiation Oncology in [place], [place] [address] [place] [phone] Al Walker M.D. [address] [place] [address] 12/18/2023 11:45 AM CDT Appointment Department of Radiation Oncology in [place], [place] [address] [place] [phone] Al Walker M.D. [address] [place] [phone] documented as of this encounter Procedures Procedure Name Priority Date/Time Associated Diagnosis Comments INITIAL RAD ONC TREATMENT PLANNING CT SIMULATION Routine 11/30/2023 3:30 PM CDT Malignant Neoplasm Of Breast Upper Inner Quadrant Female Right (HCC) documented in this encounter Results * Initial Rad Onc Treatment Planning CT Simulation without IV Contrast (11/30/2023 3:30 PM CDT) Narrative NATALIE KIRBY - 11/30/2023 3:30 PM CDT Susie Sifuentes, RTT ? 11/30/2023 ??4:08 PM Initial Rad Onc Treatment Planning CT Simulation without IV Contrast Performed by: Al Walker M.D. Authorized by: Al Walker M.D. ?? us Al Walker M.D. RADIATION ONCOLOGY ORDERAB LES Final Result NATALIE KIRBY na documented in this encounter Visit Diagnoses Diagnosis Malignant Neoplasm Of Breast Upper Inner Quadrant Female Right (HCC) documented in this encounter
--- OUTSIDE RECORDS SUMMARY | 2023-12-13 14:50 | XMS_ITS | Encounter Summary ---
Author Organization [facility] Address [address] [place] [address] Care Team Providers Care Seafood Clerk Name Role Phone Unavailable Primary Care Provider Unavailabl e Encounter Details Date Type Department Care Team (Late st Contact Info) Description 12/12/2023 10:48 AM CDT Hospital Encounter Department of Radiation Oncology in [place], [place] [address] [place] [phone] Al Walker M.D. [address] [place] [phone] Social History Tobacco Use Types Packs/Day Years [...] on file documented as of this encounter Plan of Treatment Upcoming Encounters Date Type Department Care Team (Late st Contact Info) Description 12/14/2023 11:45 AM CDT Appointment Department of Radiation Oncology in [place], [place] [address] [place] [phone] Al Walker M.D. [address] [place] [phone] 12/14/2023 12:00 PM CDT Appointment Department of Radiation Oncology in [address] [phone] Al Walker M.D. [address] [place] [phone] 12/15/2023 11:45 AM CDT Appointment Department of Radiation Oncology in [place], [place] [address] [place] [address] Al Walker M.D. [address] [place] [address] 12/18/2023 11:45 AM CDT Appointment Department of Radiation Oncology in [place], [place] [address] [place] [address] Al Walker M.D. 200 [place] [address] documented as of this encounter Visit Diagnoses Not on filedocumented in this encounter
--- OUTSIDE RECORDS SUMMARY | 2023-12-13 14:50 | XMS_ITS | Referral Summary ---
Author Organization [facility] Address [address] [place] [address] Care Team Providers Care [employer] Executive Director Name Role Phone Unavailable Primary Care Provider Unavailabl e Source Comments Patient records contain information from all sites at [facility]. For routine questions regarding patient records, call [phone] during business hours, M-F 8:00 AM - 5:00 PM Central Time. Record requests for emergency care only can be directed to [phone] at any time.[facility] Encounters Date Type Department Care Team Description 12/12/2023 10:48 AM CDT Hospital Encounter Department of Radiation Oncology in [address] [phone] Al Walker M.D. 12/11/2023 10:50 AM CDT Hospital Encounter Department of Radiation Oncology in [address] [phone] Al Walker M.D. 11/30/2023 3:30 PM CDT - 11/30/2023 4:38 PM CDT Hospital Encounter Department of Radiation Oncology in [address] [phone] Al Walker M.D. 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 Malignant Neoplasm Of Breast Upper Inner Quadrant Female Right (HCC) (Primary Dx) 11/27/2023 Orders Only Department of Radiation Oncology in [address] [phone] Leela Zeng APRN, C.N.P., D.N.P. Malignant Neoplasm Of Breast Upper Inner Quadrant Female Right (HCC) (Primary Dx) from Last 3 Months Allergies No known active allergies Medications acetaminophen (TylenoL) 500 mg tablet Take 1,000 mg by mouth. 0 Active ARIPiprazole (Abilify) 20 mg tablet Take 20 mg by mouth daily. Active atorvastatin (Lipitor) 10 mg tablet Take 10 mg by mouth at bedtime. Active benztropine (Cogentin) 0.5 mg tablet TAKE 1 TABLET (0.5 MG) BY MOUTH TWO TIMES DAILY. Active clotrimazole (Lotrimin) 1 % cream APPLY TOPICALLY TWICE A DAY FOR 4 WEEKS 4 Active FLUoxetine (PROzac) 40 mg capsule Take 40 mg by mouth daily. Active gabapentin (Neurontin) 300 mg capsule Take 300 mg by mouth at bedtime. Active levothyroxine 175 mcg tablet TAKE 1 TABLET (175 MCG) BY MOUTH BEFORE BREAKFAST. 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 11/27/2023 Cancer Staging:Pathologic stage from 10/19/2023:Stage IA(pT1c, pN0(sn), cM0, G2, ER+, WV+, HER2-, Oncotype DX score: 9) - Unsigned Social History Tobacco Use Types Packs/Day Years Used Date Smoking Tobacco: Former Cigarettes Q uit: 1997 Tobacco Cessation:Counseling Given: Not Answered Alcohol Use Standard Drinks/Week Comments Never 0 (1 standard drink = 0.6 oz pur e alcohol) Dental Answer Date Recorded Dental: Regular Dentist Unknown 11/17/19 24 Comments Unknown Sex and Gender Information Value Date Recorded Sex Assigned at Not on file Legal Sex Female 10:57 AM CDT Gender Identity Not on file Sexual Orientation Not on file Last Filed Vital Signs Vital Sign Reading Time Taken Comments Blood Pressure 158/71 11/30/2023 2:25 PM CDT Pulse 105 11/30/2023 2:25 PM CDT Temperature 36.8 ??C (98.3 ??F) 11/30/2023 2:25 PM CD T Respiratory Rate - - Oxygen Saturation - - Inhaled Oxygen Concentration - - Weight 126 kg (277 lb 1.9 oz) 11/30/2023 2:25 PM CDT Height - - Body Mass Index - - Plan of Treatment Upcoming Encounters Date Type Department Care Team (Late st Contact Info) Description 12/14/2023 11:45 AM CDT Appointment Department of Radiation Oncology in [address] [phone] Al Walker M.D. [address] [place] [phone] 12/14/2023 12:00 PM CDT Appointment Department of Radiation Oncology in [address] [phone] Al Walker M.D. [address] [place] [phone] 12/15/2023 11:45 AM CDT Appointment Department of Radiation Oncology in [address] [phone] Al Walker M.D. [address] [place] [phone] 12/18/2023 11:45 AM CDT Appointment Department of Radiation Oncology in [address] [phone] Al Walker M.D. [address] [place] [phone] Procedures Procedure Name Priority Date/Time Associated Diagnosis Comments ARIA DAILY TREATMENT INFORMATION Routine 12/12/2023 11:28 AM CDT ARIA DAILY TREATMENT INFORMATION Routine 12/11/2023 11:29 AM CDT ARIA COURSE COMPLETE TREATMENT INFORMATION Routine 12/05/2023 7:57 AM CDT INITIAL RAD ONC TREATMENT PLANNING CT SIMULATION Routine 11/30/2023 3:30 PM CDT Malignant Neoplasm Of Breast Upper Inner Quadrant Female Right (HCC) OUTSIDE MG MAMMOGRAM Routine 10/19/2023 12:15 PM CDT OUTSIDE MG MAMMOGRAM Routine 10/19/2023 10:50 AM CDT OUTSIDE OTHER Routine 10/19/2023 10:00 AM CDT OUTSIDE US BREAST Routine 10/19/2023 9:4 0 AM CDT OUTSIDE MG MAMMOGRAM Routine 10/03/2023 9:55 AM CDT OUTSIDE US BREAST Routine 10/03/2023 9:2 0 AM CDT OUTSIDE MG MAMMOGRAM Routine 09/26/2023 2:20 PM CDT OUTSIDE US BREAST Routine 09/26/2023 12: 00 AM CDT OUTSIDE MG MAMMOGRAM Routine 09/14/2023 12:00 AM CDT from Last 3 Months Results * [facility] Information (12/12/2023 11:28 AM CDT) Only the most recent of2 resultswithin the time period is included. Course ID [id number] [facility] Course Start Date 4 08:37 CDT [facility] First Treatment Date 4 11:28 CDT [facility] Last Treatment Date 4 11:28 CDT [facility] Treatment Elapsed Days 1 [facility] Reference Point [id number] [facility] ERA Dosage Given to Date cGy 1040 [facility] Session Dosage Given 520 [facility] Plan ID [id number] [facility] Fractions Treated to Date 2 [facility] Planned Total Fractions 5 [facility] Prescribed Dose Per Fraction 520 [facility] Prescription Dose in cGy 2600 ESTRADA [facility] Plan Primary Reference Point [id number] ESTRADA [facility]A 12/12/2023 11:2 8 AM CDT us Provider Not In System RADIATION ONCOLOGY ORDERA BLES Final Result Performing Organization Address City/[facility]/ZIP Co de Phone Number NATALIE KIRBY na * Aria Course Complete Treatment Information (12/05/2023 7:57 AM CDT) Course ID [id number] ESTRADA [facility] Course Start Date 12/04/2023 10:59 CDT [facility] Course End Date 12/05/2023 07:53 CDT ESTRADA [facility] Reference Point [id number] ESTRADA [facility]A Dosage Given to Date cGy 0 ESTRADA [facility] Plan ID [id number] ESTRADA [facility] Fractions Treated to Date 0 ESTRADA [facility]A Planned Total Fractions 5 ESTRADA ARIA Prescribed Dose Per Fraction 520 ESTRADA [facility]A Prescription Dose in cGy 2600 ESTRADA ARIA Plan Primary Reference Point [id number] ESTRADA ARIA Plan ID [id number] ESTRADA ARIA Fractions Treated to Date 0 ESTRADA ARIA Planned Total Fractions 5 ESTRADA ARIA Prescribed Dose Per Fraction 520 ESTRADA ARIA Prescription Dose in cGy 2600 ESTRADA ARIA Plan Primary Reference Point [id number] ESTRADA ARIA Plan ID [id number] ESTRADA ARIA Fractions Treated to Date 0 ESTRADA ARIA Planned Total Fractions 5 ESTRADA ARIA Prescribed Dose Per Fraction 520 ESTRADA ARIA Prescription Dose in cGy 2600 ESTRADA ARIA Plan Primary Reference Point [id number] ESTRADA ARIA 12/05/2023 7:57 AM CDT us Provider Not In System RADIATION ONCOLOGY ORDERA BLES Final Result NATALIE KIRBY na * Initial Rad Onc Treatment Planning CT Simulation without IV Contrast (11/30/2023 3:30 PM CDT) Narrative ESTRADA ARIA - 11/30/2023 3:30 PM CDT Susie Sifuentes, RTT ? 11/30/2023 ??4:08 PM Initial Rad Onc Treatment Planning CT Simulation without IV Contrast Performed by: Al Walker M.D. Authorized by: Al Walker M.D. ?? Al Walker M.D. RADIATION ONCOLOGY ORDERAB LES Final Result Performing Organization Address [facility] de Phone Number NATALIE KIRBY na * MM surgical specimen RT-Outside Mammogram (10/19/2023 12:15 PM CDT) Only the most recent of5 resultswithin the time period is included. Narrative [facility] - 11/23/2023 10:01 AM CDT This order has been created and auto-finalized to support the import of outside images. If available, original interpretation can be found on the Media Tab in Chart Review, in Document Viewer, as an image in QREADS or as an Addendum. If a re-interpretation or overread is required please follow defined workflow.?? Provider Not In System IMG BI PROCEDURES Final R esult Performing Organization Address [facility] de Phone Number IIMS NA * NM sentinel node inject only-Outside Other (10/19/2023 10:00 AM CDT) Narrative [facility] - 11/23/2023 9:58 AM CDT This order has been created and auto-finalized to support the import of outside images. If available, original interpretation can be found on the Media Tab in Chart Review, in Document Viewer, as an image in QREADS or as an Addendum. If a re-interpretation or overread is required please follow defined workflow.?? Provider Not In System IM DIAGNOSTIC IMAGING [place] OCEDURES Final Result Performing Organization Address [facility] de Phone Number IIMS NA * US BREAST NEEDLE LOC RT-Outside US Breast (10/19/2023 9:40 AM CDT) Only the most recent of3 resultswithin the time period is included. Narrative [facility] 11/23/2023 9:58 AM CDT This order has been created and auto-finalized to support the import of outside images. If available, original interpretation can be found on the Media Tab in Chart Review, in Document Viewer, as an image in QREADS or as an Addendum. If a re-interpretation or overread is required please follow defined workflow.?? us Provider Not In System IMG BI PROCEDURES Final R esult [facility]IM[facility] NA from Last 3 Months Insurance MEDICARE
--- OUTSIDE RECORDS SUMMARY | 2023-12-13 14:50 | XMS_ITS | Encounter Summary ---
Author Organization [facility] Address [address] [place] [address] Care Team Providers Care Lepidopterist Name Role Phone Unavailable Primary Care Provider Unavailabl e Encounter Details Date Type Department Care Team (Late st Contact Info) Description 12/11/2023 10:50 AM CDT Hospital Encounter Department of Radiation Oncology in [place], [place] [address] [place] [phone] Al Walker M.D. [address] [place] [phone] Social History Tobacco Use Types Packs/Day Years [...] CDT Appointment Department of Radiation Oncology in [place], [place] [address] [place] [phone] Al Walker M.D. [address] [place] [phone] 12/14/2023 12:00 PM CDT Appointment Department of Radiation Oncology in [address] [phone] Al Walker M.D. [address] [place] [phone] 12/15/2023 11:45 AM CDT Appointment Department of Radiation Oncology in [place], [place] [address] [place] [phone] Al Walker M.D. [address] [place] [address] 12/18/2023 11:45 AM CDT Appointment Department of Radiation Oncology in [place], [place] [address] [place] [address] Al Walker M.D. [address] [place] [phone] documented as of this encounter Visit Diagnoses Not on filedocumented in this encounter
--- OUTSIDE RECORDS SUMMARY | 2023-12-13 14:50 | XMS_ITS | Encounter Summary ---
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 [address] [place] [address] Phone: tel: fax: Referral ID Status Reason Start Date Expiration Date Visits Re quested Visits Authorized [id number] Closed 11/21/2023 11/20/2024 1 1 Encounter Details Date Type Department Care Team (Latest Contact Info) Description 11/30/2023 2:22 PM CDT - 11/30/2023 3:29 PM CDT Hospital Encounter Department of Radiation Oncology in [place], [place] [address] [place] [phone] Al Walker M.D. [address] [place] [phone] Malignant Neoplasm Of Breast Upper Inner Quadrant Female Right (HCC) (Primary Dx) Social History Tobacco Use Types Packs/Day Years [...] on file documented as of this encounter Last Filed Vital Signs Vital Sign Reading [...] - - Body Mass Index - - documented in this encounter Medications at Time of Discharge [...] BEFORE BREAKFAST. documented as of this encounter Consult Notes * Diana Mckeon M.D. - 11/30/2023 2:30 PM CDT RADIATION ONCOLOGY CONSULTATION Supervising Fish Farmer: Dr. Walker Referring Provider: Maura Hoffman M.D. Home [address]: [address] [place] [address], [address] [place] [address] SUBJECTIVE History of present illness Ms. Haritha Sanford is a 63 y.o. female with pT1cN0 right breast IDC who presents in consultation for consideration of radiation treatment. The patient's oncologic history is as follows: Oncology History Malignant Neoplasm Of Breast Upper Inner Quadrant Female Right (HCC) 09/14/2023 Critical Imaging Bilateral screening mammogram demonstrated right breast asymmetry/mass; no concerning findings in the left breast 09/26/2023 Critical Imaging Right breast focused diagnostic mammogram: Suspicious mass with architectural distortion RIGHT breast upper inner quadrant. No suspicious calcifications. Right Breast focused ultrasound: 1 o'clock 7 cm from the nipple performed. In this location, there is a taller than wide spiculated hypoechoic mass measuring 11 x 7 x 7 mm. 10/03/2023 Biopsy/Pathology Final Diagnosis RIGHT BREAST, 1:00, 7 CM FROM NIPPLE, ULTRASOUND-GUIDED CORE BIOPSY: 1. Invasive ductal carcinoma with prominent single file line formation a. Lul grade: II of III; Lul score: 6 of 9 b. Angio-lymphatic invasion: Absent c. Associated DCIS: Present d. Subtype: Cribriform and Solid e. Grade of DCIS: 2 of 3 2. Breast Ancillary Testing: a. Hormone Receptors: Estrogen receptor: Positive (97%, strong staining) Progesterone receptor: Positive (86%, moderate staining) b. HER2 by IHC: Negative (1+ by manual morphometry) c. Ki-67: 11% 10/19/2023 Surgery and Procedures Right breast lumpectomy and sentinel lymph node biopsy with Dr. Robina Reynaga Final Diagnosis A) RIGHT BREAST, WIRE-LOCALIZED LUMPECTOMY: 1. Invasive ductal carcinoma, [place] grade II of III a. Size: 11 mm b. Core biopsy site is associated with tumor 2. Ductal carcinoma in situ (DCIS), nuclear grade 2, Cribriform and Solid type 3. Margins: a. Invasive carcinoma is less than 1 mm from the superior margin and 1.5 mm from the anterior margin b. DCIS is 2 mm from the superior margin 4. Breast Ancillary Testing: Performed on prior case ([id number]) a. Hormone Receptors: Estrogen receptor: Positive (97%, strong staining) Progesterone receptor: Positive (86%, moderate staining) b. HER2 by IHC: Negative (1+ by manual morphometry) c. Ki-67: 11% 5. Atypical lobular hyperplasia (ALH) B) RIGHT AXILLARY SENTINEL LYMPH NODE, BIOPSY: 1. Negative for malignancy in 3 lymph nodes (0/3) C) RIGHT BREAST, SUPERIOR MARGIN, RE-EXCISION WITH EVALUATION OF SURGICAL MARGINS: Negative for atypia and malignancy SYNOPTIC REPORTING SPECIMEN Procedure: Excision (less than total mastectomy) Specimen Laterality: Right TUMOR Tumor Site: Clock position : 1 o'clock Tumor Site: Distance from nipple (Centimeters): 7 cm Histologic Type: Invasive carcinoma of no special type (ductal) Histologic Type Comment: with prominent single file line formation Histologic Grade ([place] Histologic Score): Glandular (Acinar) / Tubular Differentiation: Score 3 Nuclear Pleomorphism: Score 2 Mitotic Rate: Score 1 Overall Grade: Grade 2 (scores of 6 or 7) Tumor Size: Greatest dimension of largest invasive focus (Millimeters): 11 mm Tumor Focality: Single focus of invasive carcinoma Ductal Carcinoma In Situ (DCIS): Present : Negative for extensive intraductal component (EIC) Architectural Patterns: Cribriform Architectural Patterns: Solid Nuclear Grade: Grade II (intermediate) Necrosis: Not identified Lobular Carcinoma In Situ (LCIS): Not identified Lymphatic and / or Vascular Invasion: Not identified Dermal Lymphatic and / or Vascular Invasion: No skin present Treatment Effect in the Breast: No known presurgical therapy MARGINS Margin Status for Invasive Carcinoma: All margins negative for invasive carcinoma Distance from Invasive Carcinoma to Closest Margin: 1.5 mm Closest Margin(s) to Invasive Carcinoma: Anterior Margin Status for DCIS: All margins negative for DCIS Distance from DCIS to Closest Margin: Greater than: 10 mm Closest Margin(s) to DCIS: All margins REGIONAL LYMPH NODES Regional Lymph Node Status: : All regional lymph nodes negative for tumor Total Number of Lymph Nodes Examined (sentinel and non-sentinel): 3 Number of Wolsey Nodes Examined: 3 pTNM CLASSIFICATION (AJCC 8th Edition) pT Category: pT1c pN Category: pN0 N Suffix: (sn) 11/13/2023 Other Oncotype DX score 9 11/20/[address] Dr[address] Maura Hoffman, Medical Oncology. Did not recommend any chemotherapy. Did recommend adjuvant endocrine therapy which patient was agreeable to. 12/11/2023 - Radiation Therapy Radiation Therapy Treatment Details (Noted on 11/27/2023) Site: Right Breast Technique: No technique specified Goal: Curative Planned Treatment Start Date: 12/11/2023 In the clinic today, Ms. Haritha Sanford states she has recovered from surgery well. She has no issues with pain or swelling. She is back to doing normal activities. Past medical history Pertinent past medical history, past surgical history, medications, allergies, social history, and family history were reviewed. Pertinent past medical history includes none. The patient does not have a history of lupus, scleroderma, or ulcerative colitis. The patient has no implanted medical devices. Social history is significant for former smoker. Prior history of radiation none. Review of systems Review of systems as noted in HPI. OBJECTIVE Vitals Weight: 126 kg Physical exam ECO Constitutional: Pleasant, in no acute distress, ambulates with a walker. Please see Dr. Walker's attestation for breast exam. ASSESSMENT / PLAN #1 pT1c ER+ NC+ HER2- grade 2 right breast invasive ductal carcinoma s/p lumpectomy Ms. Haritha Sanford is a 63 y.o. female with early stage R breast cancer who is seen in Radiation Oncology for a discussion of radiation treatment. I have reviewed the pertinent history, laboratory, and imaging studies. We discussed our recommendation for adjuvant breast radiation to reduce the risk of recurrence. Due to the narrow surgical margin, we would recommend whole breast radiation (rather than partial). We discussed this may be done in 1 vs 3 weeks, with an optional boost to the resection cavity to further reduce the risk of recurrence. The patient would like to pursue a 1 week course without a boost. We discussed the logistics of radiation simulation, planning, and daily treatment. We also reviewedthe acute and late toxicities associated with treatment including skin erythema, skin thickening and discoloration, lymphedema, and fatigue. The patient displayed understanding of the risks and benefits. We will plan for CT simulation today and initiation of treatment on approximately 12/11/23. All questions were answered to the patient's satisfaction. Our departmental contact information wasprovided to the patient who was encouraged to contact the Department of Radiation Oncology with further questions or concerns. Upcoming oncologic appointments and tests CT simulation today Treatment start 12/[address] Walker is the recruiting consultant; please see his attestation for details. Cosigned by Al Walker M.D. at 12/01/2023 8:43 PM CDT Associated attestation - Al Walker M.D. - 12/01/2023 8:43 PM CDT I saw and evaluated the patient and participated in the lemons portions of the service. I reviewed thedocumentation of Diana Mckeon M.D. and agree with the findings and plan. Ms. Haritha Sanford is a 63 y.o. female with stage IA (pT1c, pN0(sn), cM0, G2, ER+, NC+, HER2-, Oncotype DX score: 9) invasive ductal carcinoma of the upper- inner quadrant of the right breast. We are asked by Dr. Hoffman to evaluate the patient for radiotherapy. Her oncologic history is well-detailed in Dr. Mckeon's note. In brief, screening mammography on September 14, 2023 revealed a new asymmetry in the upper inner quadrant of the right breast. Right diagnostic mammogram and ultrasound on September 26, 2023 confirmed the same with a 11 mm hypoechoic mass at the 1o'clock position. Ultrasound-guided biopsy on October 03, 2023 confirmed invasive ductal carcinoma with prominent single file line formation, grade 2, associated grade 2 DCIS of cribriform and solid types, ER positive (97%) NC positive (86%), HER2 negative by IHC (1+), Ki-67 11%. Dr. Reynaga performed a right breast lumpectomy and sentinel lymph node biopsy on October 19, 2023 with pathology confirming an 11 mm grade 2 invasive ductal carcinoma again with associated grade 2 DCIS. Margins were initially close in the superior and anterior aspects but with re- excision margins were negative by 1.5 mm to the invasive component and by more than 10 mm to the DCIS. Three sentinel lymph nodes were removed and all were negative. Hence, she had stage IA (pT1c, pN0, M0 disease). Oncotype DX was 9 on November 13, 2023. She saw Dr. Hoffman on November 20, 2023 and endocrine therapy was recommended. The patient reports that she is currently feeling well. She has recovered well from her surgery. Her ECOG performance status is 1. OBJECTIVE BP 158/71 (BP Location: Right arm, Patient Position: Sitting, Cuff Size: Large) Pulse 105 Temp 36.8 ??C (Temporal) Wt 126 kg PHYSICAL EXAM General: Patient is awake, alert, and oriented to person, place, and time. No apparent distress. She is here today by herself. Exam was chaperoned by Dr. Mckeon. Lymph: No palpable cervical, supraclavicular, infraclavicular, or axillary adenopathy. Lungs: Clear to auscultation bilaterally. Heart: Regular rate and rhythm. Normal S1 and S2. No murmurs. Normal active bowel sounds are present. Extremities: No upper extremity edema. Wrist circumference is normal bilaterally. Breasts: Examined in the sitting and supine positions. The right breast has an everted nipple with a well-healed surgical incision at 12:00 p.m. position with some tissue absence deep to this but no palpable nodularity or overlying skin changes. She does have a large mole superiorly at the 11 o'clock position that has been present for many years. There is also well-healed right axillary incisional scar. The left breast has an everted nipple with no palpable masses, no overlying skin changes, and no expressible nipple discharge. DIAGNOSTICS I reviewed the patient's imaging and pathology reports. ASSESSMENT / PLAN #1 Stage IA (pT1c, pN0(sn), cM0, G2, ER+, NC+, HER2-, Oncotype DX score: 9) invasive ductal carcinoma, status post lumpectomy with 1.5 mm negative margins and sentinel lymph node surgery on October 19, 2023 I had a detailed discussion with the patient regarding the risks, benefits, and alternatives of radiotherapy in this setting. I reviewed the NCCN guidelines in formulating my recommendations. I went over these with the patient. We discussed standard hypofractionated whole breast radiotherapy to a dose of 4005 cGy in 15 fractions with or without a boost of 1000 cGy in 4 fractions to the lumpectomy cavity. We also discussed the possibility of treating the whole breast to a dose of 2600 cGy in 5 fractions (as per the FAST-Forward trial, Herrerat et al., Lancet 2020) with possible boost of 1000 cGy in 4 fractions to the lumpectomy cavity. We also discussed accelerated partial breast irradiation tothe lumpectomy cavity alone to a dose of 3000 cGy in 5 fractions, but she would not be a good candid ate for this given the close but negative margin. I recommend treatment to the right whole breast to a dose of 2600 cGy in 5 fractions. The patient declined a boost despite her close margins. I discussed the logistics as well as the acute and chronic side effects of treatment. For a complete listing of these, please see Dr. Mckeon's note. After this discussion, I provided the patient with a written summary of my recommendations. Her questions were answered to her verbalized satisfaction. The patient verbally stated that she would liketo proceed with treatment and signed the consent form. She will undergo CT simulation today. We will endeavor to begin treatment on December 11, 2023. My thanks to Drs. Hoffman, Ronnell, and Tad for the opportunity to participate in this patient's care. EDUCATION Ready to learn, no apparent learning barriers were identified; learning preferences include listening. Explained diagnosis and treatment plan; patient expressed understanding of the content. CONSENT Discussed the risks, benefits, alternatives, and the necessity of other members of the healthcare team participating in the procedure. All questions answered and consent given. I have spent 50 minutes caring for this patient including both uptv-gq-ravm and sbw-lviq-nc-face time. Signed by: Al Walker M.D. 12/01/2023 8:43 PM CDT Radiation Oncology [facility] [address] [place] [address] documented in this encounter Miscellaneous Notes * Addendum Note - Juli Guerrero C.N.AKennedy - 11/30/2023 2:30 PM CDTEncounter addended by: Juli Guerrero C.N.AKennedy on: 12/01/2023 7:08 AM Actions taken: Letter saved * Addendum Note - Al Walker M.D. - 11/30/2023 2:30 PM CDTEncounter addended by: Al Walker M.D. on: 12/01/2023 4:59 PM Actions taken: Edit attestation on clinical note * Addendum Note - Al Walker M.D. - 11/30/2023 2:30 PM CDTEncounter addended by: Al Walker M.D. on: 12/01/2023 9:46 PM Actions taken: Edit attestation on clinical note documented in this encounter Plan of Treatment Upcoming Encounters Date Type Department Care Team (Late st [facility] Info) Description 12/14/2023 11:45 AM CDT Appointment Department of Radiation Oncology in [address] [phone] Al Walker M.D. [address] [place] [phone] 12/14/2023 12:00 PM CDT Appointment Department of Radiation Oncology in [address] [phone] Al Walker M.D. [address] [place] [phone] 12/15/2023 11:45 AM CDT Appointment Department of Radiation Oncology in [address] [phone] Al Walker M.D. [address] [place] [phone] 12/18/2023 11:45 AM CDT Appointment Department of Radiation Oncology in [address] [phone] Al Walker M.D. [address] [place] [phone] documented as of this encounter Visit Diagnoses Diagnosis Malignant Neoplasm Of Breast Upper Inner Quadrant Female Right (HCC)- Primary documented in this encounter
--- OUTSIDE RECORDS SUMMARY | 2023-12-13 14:50 | XMS_ITS | Encounter Summary ---
Author Organization [facility] Address [address] [place] [address] Care Team Providers Care Keno Writer Name Role Phone Unavailable Primary Care Provider Unavailabl e Reason for Referral * Specialty Diagnoses / Procedures Referred By Contac t Referred To Contact Diagnoses Malignant Neoplasm Of Breast Upper Inner Quadrant Female Right (HCC) Leela Zeng APRN, C.N.P., D.N.P. [address] [place] [phone] Phone: tel: fax: [facility] Region Referral ID Status Reason Start Date Expiration Date Visits Re quested Visits Authorized Scheduling Instructions Please do not schedule if patient has 10 fractions or less, unless requested by care team. * Radiation Therapy (Routine) - Authorized Specialty Diagnoses / Procedures Referred By Contac t Referred To Contact Diagnoses Malignant Neoplasm Of Breast Upper Inner Quadrant Female Right (HCC) Procedures Management Visit Al Walker M.D. [address] [place] [address] Phone: tel: fax: [facility] Region Referral ID Status Reason Start Date Expiration Date V isits Requested Visits Authorized [id number] Authorized 11/27/2023 11/26/2024 10 10 * Radiation Therapy (Routine) - Closed Specialty Diagnoses / Procedures Referred By Contac t Referred To Contact Diagnoses Malignant Neoplasm Of Breast Upper Inner Quadrant Female Right (HCC) Procedures Initial Rad Onc Treatment Planning CT Simulation without IV Contrast Al Walker M.D. [address] [place] [address] Phone: tel: fax: [facility] Referral ID Status Reason Start Date Expiration Date Visits Re quested Visits Authorized [id number] Closed 11/27/2023 11/26/2024 1 1 * Radiation Therapy (Routine) - Authorized Specialty Diagnoses / Procedures Referred By Contac t Referred To Contact Diagnoses Malignant Neoplasm Of Breast Upper Inner Quadrant Female Right (HCC) Procedures Prior Auth Rad Tx Al Walker M.D. [address] [place] [phone] Phone: tel: fax: [facility] Referral ID Status Reason Start Date Expiration Date V isits Requested Visits Authorized [id number] Authorized 11/27/2023 11/26/2024 1 1 Encounter Details Date Type Department Care Team (Late st Contact Info) Description 11/27/2023 Orders Only Department of Radiation Oncology in [place], [place] [address] [place] [address] Leela Zeng APRN, C.N.P., D.N.P. [address] [place] [phone] Malignant Neoplasm Of Breast Upper Inner Quadrant [...] CDT Appointment Department of Radiation Oncology in [address] [phone] Al Walker M.D. [address] [place] [phone] 12/14/2023 12:00 PM CDT Appointment Department of Radiation Oncology in [address] [phone] Al Walker M.D. [address] [place] [phone] 12/15/2023 11:45 AM CDT Appointment Department of Radiation Oncology in [address] [phone] Al Walker M.D. [address] [place] [phone] 12/18/2023 11:45 AM CDT Appointment Department of Radiation Oncology in [address] [phone] Al Walker M.D. [address] [place] [address] Scheduled Orders Name Type Priority Associated Diagnoses Order Schedule Prior Auth Rad Tx Radiation Oncology Routine Malignant Neoplasm Of Breast Upper Inner Quadrant Female Right (HCC) Ordered: 11/27/2023 Management Visit Radiation Oncology Routine Malignant Neoplasm Of Breast Upper Inner Quadrant Female Right (HCC) 10 Occurrences starting 11/27/2023 until 02/25/2025 Scheduled Referrals Name Type Priority Associated Diagnoses Orde r Schedule Radiation Oncology - Nurse education visit (clinic) Outpatient Referral Routine Malignant Neoplasm Of Breast Upper Inner Quadrant Female Right (HCC) Expected: 11/27/2023, Expires: 02/25/2025 documented as of this encounter Results * Initial Rad Onc [...] Upper Inner Quadrant Female Right (HCC)- Primary Malignant Neoplasm Of Breast Upper Inner Quadrant Female Right (HCC) documented in this encounter
--- OUTSIDE RECORDS SUMMARY | 2023-12-13 14:50 | XMS_ITS | Clinical Summary ---
Author Organization [facility] Address [address] [place] [id number] Care Team Providers Care Instant Printer Operator Name Role Phone Unavailable Primary Care Provider Unavailabl e Source Comments Patient records contain information from all sites at [facility]. For routine questions regarding patient records, call [phone] during business hours, M-F 8:00 AM - 5:00 PM Central Time. Record requests for emergency care only can be directed to [phone] at any time.[facility] Allergies No known active allergies Medications acetaminophen [...] from 10/19/2023:Stage IA(pT1c, pN0(sn), cM0, G2, ER+, FL+, HER2-, Oncotype DX score: 9) - Unsigned Encounters Date Type Department Care Team Description 12/12/2023 10:48 AM CDT Hospital Encounter Department of Radiation Oncology in [place], [place] [address] [place] [address] Al Walker M.D. 12/11/2023 10:50 AM CDT Hospital Encounter Department of Radiation Oncology in [address] [phone] Al Walker M.D. 11/30/2023 3:30 PM CDT - 11/30/2023 4:38 PM CDT Hospital Encounter Department of Radiation Oncology in [address] [phone] Al Walker M.D. Malignant Neoplasm Of Breast Upper Inner Quadrant Female Right (HCC) 11/30/2023 2:22 PM CDT - 11/30/2023 3:29 PM CDT Hospital Encounter Department of Radiation Oncology in [address] [address] Al Walker M.D. Malignant Neoplasm Of Breast Upper Inner Quadrant Female Right (HCC) (Primary Dx) 11/27/2023 Orders Only Department of Radiation Oncology in [address] [phone] Leela Zeng APRN, C.N.P., D.N.P. Malignant Neoplasm Of Breast Upper Inner Quadrant Female Right (HCC) (Primary Dx) from Last 3 Months Social History Tobacco Use Types Packs/Day Years [...] CDT Appointment Department of Radiation Oncology in [address] [phone] Al Walker M.D. [address] [place] [phone] 12/14/2023 12:00 PM CDT Appointment Department of Radiation Oncology in [address] [phone] Al Walker M.D. [address] [place] [phone] 12/15/2023 11:45 AM CDT Appointment Department of Radiation Oncology in [address] [phone] Al Walker M.D. [address] [place] [phone] 12/18/2023 11:45 AM CDT Appointment Department of Radiation Oncology in [address] [address] Al Walker M.D. [address] [place] [phone] Health Maintenance Due Date Last Done Comments CT Colonography 1960 Cologuard 1960 Colonoscopy 1960 Colorectal Cancer Screening 1960 FIT 1960 HIV Screening 1960 Hepatitis C Screening 1960 Pneumococcal vaccine (0-64 years) (1 of 2 - PCV) 1966 RSV vaccine - (32-36 weeks) or 60+ years (1 - Risk 60-74 years 1-dose series) 2020 Depression Screening (Annual PHQ-2) 02/27/2023 Thyroid Stimulating Hormone (TSH) test for thyroid function 07/29/2023 07/28/2022, 07/21/2021, 09/29/2020, Additional history exists COVID-19 Vaccine ( season) 2023 07/28/2022, 07/21/2021, 08/01/2020 Influenza Vaccine (#1) 2023 02/21/2019 Mammogram 10/18/2024 10/19/2023, 09/28, 10/03/2023, Additional history exists Fasting Glucose for Diabetes Screening 07/28/2025 07/28/2022, 07/21/2021, 11/01/2019, Additional history exists Lipid (Cholesterol) Screening 09/06/2028 09/07/2023, 07/28/2022, 07/21/2021, Additional history exists DTaP,Tdap,and Td Vaccines (2 - Td or Tdap) 07/17/2030 07/17/2020 Zoster Vaccines Completed 07/21/2021, 07/17/2020 HPV Vaccines Aged Out No longer eligi ble based on patient's age to complete this topic Procedures Procedure Name Priority Date/Time Associated Diagnosis Comments ARIA DAILY TREATMENT INFORMATION Routine 12/12/2023 11:28 AM CDT ARIA DAILY TREATMENT INFORMATION Routine 12/11/2023 11:29 AM CDT [facility] COMPLETE TREAT[facility] INFORMATION Routine 12/05/2023 7:57 [...] CDT from Last 3 Months Results * Aria Daily Treatment Information (12/12/2023 11:28 AM CDT) Only the most recent of2 resultswithin the time period is included. Course ID [id number] ESTRADA ARIA Course Start Date 4 08:37 CDT ESTRADA ARIA First Treatment Date 4 11:28 CDT ESTRADA ARIA Last Treatment Date 4 11:28 CDT ESTRADA ARIA Treatment Elapsed Days 1 ESTRADA ARIA Reference Point [id number] ESTRADA ARIA Dosage Given to Date cGy 1040 ESTRADA ARIA Session Dosage Given 520 ESTRADA ARIA Plan ID [id number] ESTRADA ARIA Fractions Treated to Date 2 ESTRADA ARIA Planned Total Fractions 5 ESTRADA ARIA Prescribed Dose Per Fraction 520 ESTRADA ARIA Prescription Dose in cGy 2600 ESTRADA ARIA Plan Primary Reference Point [id number] ESTRADA ARIA 12/12/2023 11:2 8 AM CDT us Provider Not In System RADIATION ONCOLOGY ORDERA BLES Final Result ESTRADA ARIA na * Aria Course Complete Treatment Information (12/05/2023 7:57 AM CDT) Course ID [id number] ESTRADA ARIA Course Start Date 12/04/2023 10:59 CDT ESTRADA ARIA Course End Date 12/05/2023 07:53 CDT ESTRADA ARIA Reference Point [id number] ESTRADA ARIA Dosage Given to Date cGy 0 ESTRADA ARIA Plan ID [id number] ESTRADA ARIA Fractions Treated to Date 0 ESTRADA ARIA Planned Total Fractions 5 ESTRADA ARIA Prescribed Dose Per Fraction 520 ESTRADA ARIA Prescription Dose in cGy 2600 ESTRADA ARIA Plan Primary Reference Point [id number] ESTRADA ARIA Plan ID [id number] ESTRADA ARIA Fractions Treated to Date 0 ESTRADA ARIA Planned Total Fractions 5 ESTRADA ARIA Prescribed Dose Per Fraction 520 ESTRADA ARIA Prescription Dose in cGy 2600 ESTRADA ARIA Plan Primary Reference Point [id number] ESTRADA ARIA Plan ID [id number] ESTRADA ARIA Fractions Treated to Date 0 ESTRADA ARIA Planned Total Fractions 5 ESTRADA ARIA Prescribed Dose Per Fraction 520 ESTRADA ARIA Prescription Dose in cGy 2600 ESTRADA ARIA Plan Primary Reference Point [id number] ESTRADA ARIA 12/05/2023 7:57 AM CDT us [...] ORDERAB LES Final Result NATALIE KIRBY na * MM surgical specimen RT-Outside Mammogram (10/19/2023 12:15 PM CDT) Only the most recent of5 resultswithin the time period is included. Narrative [facility] - 11/23/2023 10:01 AM CDT This order [...] PROCEDURES Final R esult Performing Organization Address [facility] de Phone Number [facility]IMS NA * NM sentinel node inject only-Outside Other (10/19/2023 10:00 AM CDT) Narrative [facility] 11/23/2023 9:58 AM CDT This order has been created and auto-finalized to support the import of outside images. If available, original interpretation can be found on the Media Tab in Chart Review, in Document Viewer, as an image in QREADS or as an Addendum. If a re-interpretation or overread is required please follow defined workflow.?? us Provider Not In System IMG DIAGNOSTIC IMAGING FL OCEDURES Final Result Performing Organization Address [facility] de Phone Number [facility] NA * US BREAST NEEDLE LOC RT-Outside US Breast (10/19/2023 9:40 AM CDT) Only the most recent of3 resultswithin the time period is included. Narrative [facility] - 11/23/2023 9:58 AM CDT This order [...] PROCEDURES Final R esult Performing Organization Address [facility] Co de Phone Number [facility]S NA from Last 3 Months Insurance MEDICARE
--- OUTSIDE RECORDS SUMMARY | 2023-12-13 14:51 | XMS_ITS | Clinical Summary ---
Author Organization [facility] Address [place], [place] [address] Care Team Providers Care Track Inspector Name Role Phone Netta Mishra MD Primary Care Provider [phone] Allergies No known active allergies Medications Medication [...] Encounters Date Type Department Care Team Description 10/31/2023 1:15 PM CDT Office Visit [facility] [address] [facility] [address] Robina Reynaga MD Post-op (Right lumpectomy with right axillary sentinel lymph node biopsy 10/19/23) 10/31/2023 Travel 10/20/2023 Orders Only [facility] [address] [place] [address] Robina Reynaga MD 1 scan: (1-Ord) [place], [place] SENTINEL NODE INJ ONLY, 10/19/2023 10/19/2023 8:00 AM CDT Office Visit [facility] at [facility] [address] [facility] [place] [address] Robina Reynaga MD 10/19/2023 Orders Only [facility] Scanner 1 scan: (1-Ord) Salvatore SANABRIA CLIP PLACEMENT RT , 10/19/2023 10/19/2023 Orders Only [facility] Scanner 1 scan: (1-Ord) DANIELE US BREAST NEEDLE LOC RT, 10/19/2023 10/19/2023 Orders Only [facility] Scanner 1 scan: (1-Ord) KIMO SANABRIA SURGICAL SPECIMEN RT, 10/19/2023 10/19/2023 Orders Only [facility] Scanner 1 scan: (1-Ord) [facility], LUMPECTOMY, 10/19/2023 10/19/2023 Lab Requisition [facility] [phone] Robina Reynaga MD 10/19/2023 Lab Requisition [facility] [phone] Robina Reynaga MD 10/18/2023 Telephone [facility] [address] [facility] [address] Robina Reynaga MD Outside Order 10/16/2023 8:20 AM CDT Preop Visit [facility] [address] [place] [address] Aliyah Medina DO Preoperative Exam (10/19/23, [facility], Dr. Reynaga) 10/16/2023 Travel 10/10/2023 4:00 PM CDT Office Visit [facility] [address] [place] [address] Robina Reynaga MD Consult (Breast cancer) 10/10/2023 Travel 10/03/2023 Lab Requisition [facility] [phone] Unknown, Doctor 10/03/2023 Orders Only [facility] [address] [place] [address] Netta Mishra MD 3 scans: (3-Ord) DANIELE US GUIDED BREAST BIOPSY RT, 10/03/2023 09/26/2023 2:30 PM CDT Ancillary Procedure [facility] [address] [place] [address] 09/26/2023 2:00 PM CDT Ancillary Procedure [facility] [address] [facility] [place] [address] 09/26/2023 Ancillary Orders [facility] [address] [facility] [place] [address] Netta Mishra MD 09/26/2023 Travel 09/14/2023 3:20 PM CDT Ancillary Procedure [facility] [address] [place] [address] 09/14/2023 Travel from Last 3 Months Immunizations Name Administration Dates Next Due COVID-19 vaccine (Dajuan-J&J) GIOVANNA LEE COVID-19 vaccine (BandwidthBio NTech 30mcg/0.3mL) 12YO+ BIVALENT PF, MDV 07/28/2022 COVID-19 vaccine (BandwidthBio NTech 30mcg/0.3mL) 12YO+ AV-SUCROSE PF, MDV 07/21/2021 Influenza, IIV4 02/21/2019 Tdap 07/17/2020 Zoster (Shingrix-RZV, recombinant) 07/21/2021, Family History Medical History Relation Name Comments Diabetes Brother Diabetes Father Cancer-breast No Family History Relation Name Status Comments Brother Father Social History Tobacco Use Types Packs/Day Years Used Date Smoking Tobacco: Former Cigarettes 1 15 1 983 - 1997 Smokeless Tobacco: Never Tobacco Cessation:Counseling Given: Yes [...] Sign Reading Time Taken Comments Blood Pressure 137/80 10/31/2023 1:10 PM CDT Pulse 98 10/31/2023 1:10 PM CDT Temperature 36.8 ??C (98.2 ??F) 10/16/2023 8:15 AM CD T Respiratory Rate 16 11/16/2019 7:50 AM CDT Oxygen Saturation 97% 10/31/2023 1:10 PM CDT Inhaled Oxygen Concentration - - Weight [...] for age 45-75 2005 COVID-19 vaccine series ( season) 2023 07/28/2022, 07/21/2021, 08/01/2020 Influenza for age 50-64 [...] 21-65 Discontinued Medical Devices Implanted Type Area Certified Phlebotomy Technician Device Identifier Shelf Expiration Date Model / Serial / Lot [id number] ne 1-4mm 60cc Medtronic Fine Canclls Freeze Dried Implanted:Qty: 1 on 11/12/2019 by Bonilla Gee MD at Explanted:at (Quantity not on file) Spine Medtronic Spine/Ortho 04/07/2024 [id number]# / [id number] / Screw Lmbr Post 8.5x45mm Solera 5.5/6 Va Cocr - [id number] Implanted:Qty: 2 on 11/12/2019 by Bonilla Gee MD at Spine Medtronic Spine/Ortho [id number]# / / Spacer Lmbr 28y40qd Capstone Tlif Peek - [id number] Implanted:Qty: 1 on 11/12/2019 by Bonilla Gee MD at Spine Medtronic Spine/Ortho [id number]# / / [id number] ne Matrix 3cc Munson Dbf Putty Dbm Implanted:Qty: 1 on 11/12/2019 by Bonilla Gee MD at Explanted:at (Quantity not on file) Spine Medtronic Spine/Ortho 10/06/2021 [id number]# / [id number] / [id number] ne 1-4mm 60cc MECLUBtronic Fine Canclls Freeze Dried Implanted:Qty: 1 on 11/12/2019 by Bonilla Gee MD at Explanted:at (Quantity not on file) Spine Medtronic Spine/Ortho 04/07/2024 [id number]# / [id number] / [id number] ne Matrix 5cc Linda Plus Paste Dbm Implanted:Qty: 1 on 11/12/2019 by Bonilla Gee MD at Explanted:at (Quantity not on file) Spine Medtronic Spine/Ortho 05/19/2021 [id number]# / [id number] / Spacer Peek Md 16mm 8deg Perimeter Alif Peek - [id number] Implanted:Qty: 1 on 11/12/2019 by Bonilla Gee MD at Spine Medtronic Spine/Ortho 04/27/2023 [id number]# / / 01BP Spacer Lmbr 8mm 8deg Perimeter Alif Peek - [id number] Implanted:Qty: 1 on 11/12/2019 by Bonilla Gee MD at Spine Medtronic Spine/Ortho 01/12/2023 [id number]# / / 66BB Set Screw Lmbr Ant 5.5mm Solera Break Off - [id number] Implanted:Qty: 9 on 11/12/2019 by Bonilla Gee MD at Spine Medtronic Spine/Ortho [id number]# / / Screw Lmbr Post 6.5x45mm Solera 5.5/6 Va Cocr - [id number] Implanted:Qty: 2 on 11/12/2019 by Bonilla Gee MD at Spine Medtronic Spine/Ortho [id number] 5# / / Screw Lmbr Post 7.5x45mm Solera 5.5/6 Va Cocr - [id number] Implanted:Qty: 5 on 11/12/2019 by Bonilla Gee MD at Spine Medtronic Spine/Ortho [id number] 5# / / Guicho Lmbr 500x5.5mm Solera 5.5/6 Stra Titnm Alloy - [id number] Implanted:Qty: 1 on 11/12/2019 by Bonilla Gee MD at Spine Medtronic Spine/Ortho [id number] # / / Explanted Type Area Certified Phlebotomy Technician Device Identifier Shelf Expiration Date Model / Serial / Lot Explant Explanted:Qty: 1 on 11/12/2019 at Description:2 RODS, 6 SCREWS , 6 SET SCREWS Procedures Procedure Name Priority Date/Time Associated Diagnosis Comments LAB TRACKING EVENT Routine 10/19/2023 12 :06 PM CDT PATH BREAST CORE BIOPSY Routine 10/19/2023 12:06 PM CDT NM INJ SENTINEL NODE BREAST RIGHT ANDREY 10/19/2023 12:00 AM CDT Invasive ductal carcinoma of right breast (HC) SCAN-OPERATIVE/PRO CEDURE REPORT 10/19/2023 12:00 AM CDT SCAN-OPERATIVE/PRO CEDURE REPORT 10/19/2023 12:00 AM CDT SCAN-DIAGNOSTIC REPORT 10/19/2023 12:00 AM CDT SCAN-OPERATIVE/PRO CEDURE REPORT 10/19/2023 12:00 AM CDT LAB TRACKING EVENT Routine 10/03/2023 9: 45 [...] 3:24 PM CDT Visit for screening mammogram LIPID PANEL W REFLEX MEASURED LDL Routine 09/07/2023 3:12 PM CDT Hyperlipidemia, unspecified hyperlipidemia type LC HIV-1/O/2, 4TH GENERATION Routine 07/28/2022 3:00 PM CDT Screening for HIV (human immunodeficiency virus) ANTI HCV Add On 07/17/2020 1:34 PM CDT Routine general medical examination at a health care facility from Last 3 Months or Most Recently Relevant to Health Maintenance Results * LAB TRACKING EVENT (10/19/2023 12:06 PM CDT) Only the most recent of2 resultswithin the time period is included. Other (Other) Client Collect / Unknown 10/19/2023 12:06 PM CDT 10/19/2023 10:03 PM CDT Robina Reynaga MD LAB BILL ONLY [facility] [address] [place] [address], [place] * PATH BREAST CORE BIOPSY (10/19/2023 12:06 PM CDT) Only the most recent of2 resultswithin the time period is included. Case Report Pathology Report ?Case: [id number] ? Authorizing Provider: ??Robina Reynaga MD ??Collected: ? 10/19/2023 1206 ? Ordering Location: ? [facility] ?Received: ?10/20/2023 0817 ? Pathologist: ? Aminah Galvez MD ? Specimens: ?? A) - Right Breast Lump ? B) - Right Breast Buffalo Node ? C) - Right Breast ? 10/24/2023 1:00 PM CDT [facility] Final Diagnosis A) RIGHT BREAST, WIRE-LOCALIZED LUMPECTOMY: 1. Invasive ductal carcinoma, Dorothy grade II of III ?a. Size: 11 mm ?b. Core biopsy site is associated with tumor 2. Ductal carcinoma in situ (DCIS), nuclear grade 2, Cribriform and Solid type 3. Margins: ?a. Invasive carcinoma is less than 1 mm from the superior margin and 1.5 mm from the anterior margin ?b. DCIS is 2 mm from the superior margin 4. Breast Ancillary Testing: Performed on prior case ([id number]) ?a. Hormone Receptors: ?Estrogen receptor: Positive (97%, strong staining) ?Progesterone receptor: Positive (86%, moderate staining) ?b. HER2 by IHC: Negative (1+ by manual morphometry) ?c. Ki-67: 11% 5. Atypical lobular hyperplasia (ALH) B) RIGHT AXILLARY SENTINEL LYMPH NODE, BIOPSY: 1. Negative for malignancy in 3 lymph nodes (0/3) C) RIGHT BREAST, SUPERIOR MARGIN, RE-EXCISION WITH EVALUATION OF SURGICAL MARGINS: Negative for atypia and malignancy 10/24/2023 1:00 PM T [facility] Clinical Information Right breast (1:00, 7 cm from nipple) invasive ductal carcinoma with prominent single file line formation, Lul grade II ([id number]). 10/24/2023 1:00 PM CDT [facility] Gross Description A) Received fresh for intraoperative consultation, labeled with the patient's name and right breast mass, is a 53.6 gram,??7.2 (AP) x 6.0 (ML) x 2.5 (SI) cm wire localized breast lumpectomy specimen. ??The wire is identified within the specimen. The specimen is inked by the surgical staff in the OR as follows: Anterior--[place] Posterior--Black Superior--Blue Inferior--Red Medial--Green Lateral--Yellow The specimen is serially sectioned from anterior to posterior into 12 slices, revealing a??1.1 (SI) x 0.9 (AP) x 0.8 (ML)??cm ill-defined, firm quinn-white mass within slice(s) 4-6 with the following characteristics: Biopsy site change: Present in slices 4-6 Biopsy clip: Is grossly identified Closest margin: Superior Distance to margins: Anterior: 0.2 cm Posterior: Greater than 1.0 cm Inferior: Greater than 1.0 cm Superior: Less than 0.1 cm Medial: 1.0 cm Lateral: Greater than 1.0 cm The remaining cut surfaces consist of approximately 80% adipose tissue and 20% fibrous tissue. No other lesions are identified. Personnel Consultant sections are submitted: 1. ??Slice 1, perpendicularly sectioned to anterior margin 2. ??Medial half slice 2 3. ??Central aspect slice 3 4. ??Central superior aspect slice 4 5-8. ??Composite slice 5 9. ??Superior aspect slice 6 10. ??Central superior aspect slice 7 11. ??Central inferior aspect slice 8 12. ??Central aspect slice 9 13. ??Central aspect slice 10 14. ??Central aspect slice 11 15. ??Slice 12, perpendicularly sectioned posterior margin An annotated photograph including sections taken is uploaded to the case. Time removed from patient: 1206 Time placed in formalin: 1230 Date removed and placed in formalin: 10/19/2023 Cold ischemic time < 60 minutes. The specimen was fixed in formalin for a minimum of 6 hours and not longer than 72 hours. B) Received in formalin, labeled with the patient's name and right axillary sentinel nodes, is a 2.8 x 2.3 x 1.7 cm aggregate of yellow-quinn adipose tissue. ??Within the adipose tissue 3 possible lymph nodes are identified measuring 0.4 x 0.2 x 0.1 cm, 1.7 x 1.2 x 1.0 cm and 1.8 x 1.2 x 1.0 cm. ??A previous biopsy clip is not identified. ??The lymph nodes are entirely submitted: 1. ??1 possible lymph node in toto 2-3. ??1 possible lymph node sectioned into 6 slices 4-6. 1 possible lymph node sectioned into 6 slices Time removed from patient: 1235 Time placed in formalin: 1244 Date removed and placed in formalin: 10/19/2023 Cold ischemic time < 60 minutes. The specimen was fixed in formalin for a minimum of 6 hours and not longer than 72 hours. C) Received in formalin, labeled with the patient's name and right breast reexcision superior margin, is a 24 g, 7.0 x 3.5 x 2.8 cm portion of yellow-quinn fibroadipose tissue. ??The specimen is previously inked blue, green, yellow, orange and black. ??The uninked aspect is inked red in pathology and does not represent true margin. ??The cut surfaces consists of 90% yellow-quinn adipose tissue and 10% rucker-white fibrous tissue. ??No lesions are identified. ??The specimen is serially sectioned and entirely submitted sequentially in 20 cassettes. Time removed from patient: 1242 Time placed in formalin: 1246 Date removed and placed in formalin: 10/19/2023 Cold ischemic time < 60 minutes. The specimen was fixed in formalin for a minimum of 6 hours and not longer than 72 hours. [facility] 10/20/2023 10/24/2023 1:00 PM T [facility] Intraoperative Consultation A) RIGHT BREAST, LUMPECTOMY, INTRAOPERATIVE CONSULTATION (Gross Evaluation Only): 1. Tumor identified GROSSLY 2. Biopsy site change identified grossly 3. Margins are grossly negative by < 1 mm (the closest margin is superior) Enoc Curran MD, 10/20/2023 9:05 AM Intraoperative consultation, which may have included frozen section preparation, gross specimen examination, and/or cytology touch imprints/smears, was performed by a pathologist during the surgical procedure. ??This testing was performed at: [address] [address] 10/24/2023 1:00 PM T [facility] Microscopic Description The final diagnosis is based on microscopic examination of appropriate sections of all specimens. 10/24/2023 1:00 PM T [facility] SYNOPTIC REPORTING INVASIVE CARCINOMA OF THE BREAST: Resection INVASIVE CARCINOMA OF THE BREAST: RESECTION - All Specimens 8th Edition - Protocol posted: 02/08/2023 SPECIMEN ?? Procedure: ?Excision (less than total mastectomy) ?? Specimen Laterality: ?Right TUMOR ?? Tumor Site: ?Clock position ?? : ?1 o'clock Tumor Site: ?Distance from nipple (Centimeters): 7 cm Histologic Type: ?Invasive carcinoma of no special type (ductal) ?? Histologic Type Comment: ?with prominent single file line formation Histologic Grade (Lul Histologic Score): ? Glandular (Acinar) / Tubular Differentiation: ?Score 3 ?? Nuclear Pleomorphism: ?Score 2 ?? Mitotic Rate: ?Score 1 ?? Overall Grade: ?Grade 2 (scores of 6 or 7) Tumor Size: ?Greatest dimension of largest invasive focus (Millimeters): 11 mm Tumor Focality: ?Single focus of invasive carcinoma Ductal Carcinoma In Situ (DCIS): ?Present ?? : ?Negative for extensive intraductal component (EIC) ?? Architectural Patterns: ?Cribriform ?? Architectural Patterns: ?Solid ?? Nuclear Grade: ?Grade II (intermediate) ?? Necrosis: ?Not identified Lobular Carcinoma In Situ (LCIS): ?Not identified Lymphatic and / or Vascular Invasion: ?Not identified Dermal Lymphatic and / or Vascular Invasion: ?No skin present Treatment Effect in the Breast: ?No known presurgical therapy MARGINS Margin Status for Invasive Carcinoma: ?All margins negative for invasive carcinoma ?? Distance from Invasive Carcinoma to Closest Margin: ?1.5 mm ?? Closest Margin(s) to Invasive Carcinoma: ?Anterior Margin Status for DCIS: ?All margins negative for DCIS ?? Distance from DCIS to Closest Margin: ?Greater than: 10 mm ?? Closest Margin(s) to DCIS: ?All margins REGIONAL LYMPH NODES Regional Lymph Node Status: ? : ?All regional lymph nodes negative for tumor ?? Total Number of Lymph Nodes Examined (sentinel and non-sentinel): ?3 ?? Number of Buffalo Nodes Examined: ?3 pTNM CLASSIFICATION (AJCC 8th Edition) ?? Reporting of pT, pN, and (when applicable) pM categories is based on information available to the pathologist at the time the report is issued. As per the AJCC (Chapter 1, 8th Ed.) it is the managing physician? s responsibility to establish the final pathologic stage based upon all pertinent information, including but potentially not limited to this pathology report. pT Category: ?pT1c pN Category: ?pN0 N Suffix: ?(sn) Comment(s): ?Block(s) for potential future ancillary testing: A6 (biopsy change present, defer to core [id number] if indicated) 10/24/2023 1:00 PM CDT [facility] Additional Information Interpreted at [facility] - [address] [place] [address] [address] [address] [address] 10/24/2023 1:00 PM CDT [facility] Other (Right Breast Lump) 10/19/2023 12:06 PM CDT 10/20/2023 8:17 AM CDT Specimen (specimen) (Right Breast Buffalo Node) 10/19/2023 12:06 PM CDT 10/20/2023 8:17 AM CDT Specimen (specimen) (Right Breast) 10/19/2023 12:06 PM CDT 10/20/2023 8:17 AM CDT Robina Reynaga MD PATHOLOGY/[facility] [address] [place] [address], * NM INJ SENTINEL NODE BREAST RIGHT (10/19/2023 12:00 AM CDT) Anatomical Region Laterality Modality Breast Right Other Robina Reynaga MD [place] * SCAN-OPERATIVE/PROCEDURE REPORT (10/19/2023 12:00 AM CDT) Scanner OTHER * SCAN-OPERATIVE/PROCEDURE REPORT (10/19/2023 12:00 AM CDT) Scanner OTHER * SCAN-OPERATIVE/PROCEDURE REPORT (10/19/2023 12:00 AM CDT) Scanner OTHER * SCAN-DIAGNOSTIC REPORT (10/19/2023 12:00 AM CDT) Scanner OTHER * US BIOPSY BREAST NEEDLE W DONATO [...] For Patients: As a result of the Century Cures Act, medical imaging exams and procedure reports are released immediately into your electronic medical record. ??You may view this report before your referring provider. ?? If you have questions, please contact your health care provider. RIGHT BREAST ULTRASOUND, 09/26/2023 PLEASE SEE [id number] FOR DIGITAL RIGHT MAMMOGRAM SAME DAY. Netta [...] Steven Jacome MD @09/26/2023 2:50:20 PM / CRL:jj PATIENTS: You will also receive a letter [...] For Patients: As a result of the Century Cures Act, medical imaging exams and [...] - 199 mg/dL 09/08/2023 1:27 AM CDT [facility] Comment: Cholesterol, Total Reference Ranges Desirable <200 mg/dL Borderline 200-239 mg/dL High >=240 mg/dL TRIGLYCERIDES 306(H) <150 mg/dL 09/08/2023 1:27 AM CDT [facility] HDL CHOLESTEROL 40(L) >40 mg/dL 4 1:27 AM CDT [facility] NON-HDL CHOLESTEROL 280(H) <145 mg/dl 09/08/2023 1:27 AM CDT [facility] CHOL/HDL RATIO 8.00(H) <4.50 09/08/2023 1:27 AM CDT [facility] LDL CHOLESTEROL 219(H) <=130 mg/dL 09/08/2023 1:27 AM CDT [facility] VLDL CHOLESTEROL 61(H) <=30 mg/dL 09/08/2023 1:27 AM CDT [facility] PROVIDER ORDERED STATUS RANDOM 09/08/2023 1:27 AM CDT [facility] Blood BLOOD SPECIMEN / Unknown Venipuncture / Unknown 09/07/2023 3:12 PM CDT 09/07/2023 3:13 PM CDT Netta Mishra MD [facility]MISTRY [facility] [address] [place] [address], * LC HIV-1/O/2, 4TH GENERATION (07/28/2022 3:00 PM CDT) Pathologist [facility] HIV Scr 4th Gen Non Reactive Non Reactive 07/30/2022 11:08 AM CDT [facility] ([facility]) Comment: HIV Negative HIV-1/HIV-2 antibodies and HIV-1 p24 antigen were NOT detected. There is no laboratory evidence of HIV infection. Blood BLOOD SPECIMEN / Unknown Venipuncture / Unknown 07/28/2022 3:00 PM CDT 07/28/2022 3:01 PM CDT Narrative [facility] ([facility]) - 07/30/2022 11:08 AM CDT Performed at: ??[address] ??[id number] Mobile Security Architect: aNdir Oliveros MD, Phone: ??[phone] Netta Mishra MD LABORATORY [facility] ([facility]) [address] [place] [id number] * ANTI HCV (07/17/2020 1:34 PM CDT) HEPATITIS C ANTIBODY Non-React aime Non-React aime 07/17/2020 10:22 PM CDT [facility]-BEST TRAL LABORATORY Comment:Antibodies to HCV no t detected; does not exclude the possibility of exposure to HCV. Blood BLOOD SPECIMEN / Unknown Venipuncture / Unknown 07/17/2020 1:34 PM CDT 07/17/2020 1:34 PM CDT Netta Mishra MD SEND OUTS [facility]AL LABORATORY [address] [place] [address], from Last 3 Months or Most Recently Relevant to Health Maintenance Advance Directives * Full Code (Latest Code Status on File) Date Activated Date Inactivated Comments 11/12/2019 4:09 PM 11/16/2019 5:32 PM Question Answer Comments Code Status Discussion: Not Discussed Care Teams Track Inspector Relationship Specialty Start Date End Date Netta Mishra MD [address] [place] [address] PCP - General Family Practice 05/06/19
--- NOTE | 2023-12-13 15:00 | CRLHL7_ITS ---
For Patients: As a result of the Century Cures Act, medical imaging exams and procedure reports are released immediately into your electronic medical record. You may view this report before your referring provider. If you have questions, please contact your health care provider. DXA BONE MINERAL DENSITY STUDY Reason for exam: Postmenopausal, screening. Current height (in): 71. Weight (lb): 270. Menopause age: 50 Ethnicity: White. 1. Have you had a previous hip or vertebral fracture? No. 2. Have you had any fractures during your adult life which did not result from significant trauma (e.g., auto accident)? No. 3. Did either of your parents have a hip fracture? No. 4. Do you smoke? No. 5. Have you ever taken Glucocorticoids? No. 6. Do you have rheumatoid arthritis? No. 7. Do you have secondary osteoporosis? No. 8. Do you drink 3 or more alcoholic drinks per day? No. 9. Are you being treated for osteoporosis? No. 10. Have you ever taken any of the following medications: Actonel, Evista, Fosamax, Miacalcin, Reclast, Boniva, Forteo, HRT (i.e. estrogen/hormone therapy), Protelos, Prolia, Vitamin D, Calcium, other ??? please specify. ANSWER: No. 11. Do you have any of the following medical conditions: Anorexia or bulimia, asthma or emphysema, end stage renal disease, hyperparathyroidism, any seizure disorders, cancer, inflammatory bowel diseases, hysterectomy, other ??? please specify. ANSWER: Yes, cancer. 12. What was your maximum height (inches)? 72. 13. Do you perform weight bearing exercise regularly? No. 14. Do you regularly consume dairy products? Yes. 15. Do you drink caffeinated beverages? Yes. 16. At what age did your period start? 14. 17. Are you premenopausal? No. 18. How many full term pregnancies have you had? 1. 19. Have you ever missed your period for more than 6 months in a row (not including or menopause)? No. TECHNIQUE: Bone mineral density study was performed using the [employer]. FINDINGS: The results of the study expressed as bone mineral density (BMD) are as follows: Neck Left: BMD: 0.981 g/cm2. T-score: 1.2. Z-score: 2.6. Right: BMD: 1.015 g/cm2. T-score: 1.5. Z-score: 2.9. Total Left: BMD: 1.158 g/cm2. T-score: 1.8. Z-score: 2.9. Right: BMD: 1.216 g/cm2. T-score: 2.2. Z-score: 3.4. Radius Left 33%: BMD: 0.773 g/cm2. T-score: 1.3. Z-score: 2.9. IMPRESSION: Normal bone density. Sophy Armijo M.D. Diagnostic/Breast Radiologist [email or web address] KENNETH/chandra / bM/Dictated by: Robbie Streeter MD @ 12/15/2023 3:42:00 PM (Electronically Signed)
== END 2023-12-13 14:47 | disposition home or self-care (01) ==
LOC: RAD 14:46
PROVIDERS: PCP Family Medicine; Visit Provider Internal Medicine Hematology & Oncology
DX: Z13.820 Encounter for screening for osteoporosis (principal); N95.9 Unspecified menopausal and perimenopausal disorder; C50.919 Malignant neoplasm of unspecified site of unspecified female breast
CPT/HCPCS: 77080

== ENCOUNTER 2024-01-10 14:30 | Outpatient (RCR) | payer MEDICARE, MEDICAID, SELFPAY ==
--- NOTE | 2023-10-16 12:22 | OT.OPLE2 ---
OT Outpatient Lymphedema Eval* OT Outpatient Lymphedema Eval* Start: 10/16/23 08:54 Freq: Status: Active Protocol: Document 10/16/23 08:54 MANJIT (Rec: 10/16/23 12:15 MANJIT [id number]) E-signed By Anel Ramirez OTKarissa/Devante, MIRACLE OT Outpatient Evaluation Details Type Type Eval Complexity Medium Insurance Information Insurance Information Insurance Information Medicaid,Medicare B Home Program Home Program Home Program Initiated Home Program Specifics Deep breathing can help you relax and ease discomfort and tightness around your incision (surgical cut). It?s also a good way to relieve stress during the day. 1. Sit comfortably in a chair. 2. Take a slow, deep breath in through your nose. Let your chest and belly expand. 3. Breathe out slowly through your mouth. Repeat as many times as you want to. Arm and shoulder exercises Doing arm and shoulder exercises will help you get back your full range of motion on your affected side. Your affected side is the side where you had your procedure. Your range of motion is how much you can safely move a part of your body. With full range of motion, you will be able to: -Move your arm over your head and out to the side. -Move your arm behind your neck. -Move your arm to the middle of your back. When to do these exercises Do these exercises 3 times every day until you can move your affected arm the way you did before your procedure. After that, keep doing them once a day. This often is important if you still feel tightness in your chest, shoulder, or under your affected arm. These exercises can help keep scar tissue from forming in your armpit and shoulder. Scar tissue can limit your arm movements later. Backward shoulder rolls This is a good exercise to start with. It gently stretches your chest and shoulder muscles. 1. Stand or sit comfortably with your arms relaxed at your sides. 2. In a circular motion, bring your shoulders forward, up, backward, and down (see Figure 1). Try to make the prairie band as big as you can and move both shoulders at the same time. 3. Repeat this movement 5 times. If you feel tightness across your incision or chest, start with smaller circles. Make them bigger as the tightness lessens. When this exercise starts to feel easier , start doing the movement an extra time. Build up to repeating it 10 times. Shoulder wings This exercise will help you get back outward movement of your shoulder. You can do it while sitting or standing. 1. Place your hands on your chest or collarbone. 2. Raise your elbows out to the side. Raise them as high as you can, up to shoulder level. If you feel discomfort near your incision, hold your position and do the deep breathing exercise. If the discomfort goes away, raise your elbows a little higher. If the discomfort does not go away, do not raise your elbows any higher. 3. Slowly lower your elbows. 4. Repeat this movement 5 times. When you?re done, slowly lower your hands. When this exercise starts to feel easier, start doing the movement an extra time. Build up to repeating it 10 times. Backward arm circles If your procedure was done on both breasts, do this exercise with one arm at a time. Doing it with both arms at once will put too much pressure on your chest. 1. Stand with your feet slightly apart for balance. Raise your affected arm out to the side as high as you can 2. Start making slow, backward circles in the air with your arm. Make sure you?re moving your arm from your shoulder, not your elbow. Keep your elbow straight. 3. Repeat this movement 5 times. Make each prairie band larger until they?re as big as you can comfortably make them. If you feel any aching or if your arm gets tired, take a break. Keep going when you feel better. 4. When you?re done, slowly lower your arm to your side. When this exercise starts to feel easier, start doing the movement an extra time. Build up to repeating it 10 times. Forward arm circles Follow the same instructions as for backward arm circles but make slow, forward circles . Make sure to rest your arm for a moment between doing backward and forward arm circles. W exercise You can do this exercise while sitting or standing. 1. Form a ?W? with your arms out to the side and palms facing forward. Try to bring your hands up so they?re even with your face. If you cannot raise your arms that high, bring them to the highest comfortable position. 2. Pinch your shoulder blades together and downward, as if you?re squeezing a pencil between them. Keep squeezing them together and downward for 5 seconds. If you feel discomfort near your incision, hold your position and do the deep breathing exercise. If the discomfort goes away, try to bring your arms back a little further. If the discomfort does not go away, do not reach any further. Hold the furthest position you can and squeeze your shoulder blades together for 5 seconds. 3. Slowly bring your arms back to the starting position. 4. Repeat this movement 5 times. When you?re done, slowly lower your hands. When this exercise starts to feel easier, start doing the movement an extra time. Build up to repeating it 10 times. Back climb You can do this exercise while sitting or standing. You will need a stopwatch, timer, or watch with a second hand for this exercise. 1. Place your hands behind your back. Hold the hand on your affected side with your other hand. If your procedure was done on both breasts, use the arm that moves most easily to hold the other. 2. Slowly slide your hands up the center of your back as far as you can. You should feel a gentle stretch in your shoulder area. Remember to breathe normally. If you feel tightness near your incision, hold your position and do the deep breathing exercise. If the tightness lessens, try to slide your hands up a little further. If it does not, leave your hands where they are. 3. Hold this position for 30 seconds. After 30 seconds, slowly lower your hands. When this exercise starts to feel easier, start holding the position for a little longer. Build up to holding it for 60 seconds (1 minute). Hands behind neck The first few times you do this exercise, do it while lying comfortably on your back on your bed. Place a pillow under your head. You can also roll up a small or medium towel and place it under the middle of your back, along your spine. This will help open up the front of your chest. Once you?re comfortable doing this exercise while lying on your back, you can do it while sitting or standing. 1. Put your hands together on your lap or in front of you. 2. Slowly raise your hands toward your head. Keep your elbows together in front of you, not out to the sides. Keep your head level. Do not bend your neck. Keep your shoulder blades squeezed together. 3. Slide your hands over your head until you reach the back of your neck. When you get to this point, spread your elbows out to the sides. If you feel tightness across your incision or chest, hold your position and do the deep breathing exercise. It?s OK to rest your hands on your head if you need to. If the tightness lessens, continue with the movement. If it does not, do not move any further. 4. Hold the highest position you can for 30 seconds. Use a stopwatch, timer, or watch with a second hand to keep track. Remember to breathe normally. After 30 seconds, slowly bring your elbows back together, slide your hands over your head, and lower your arms. When this exercise starts to feel easier, start holding the position for a little longer. Build up to holding it for 60 seconds (1 minute). Side wall crawls You will need 2 pieces of tape for this exercise. You should not feel pain while doing this exercise. It?s normal to feel some tightness or pulling across the side of your chest. Focus on your breathing until the tightness lessens. Be careful not to turn your body toward the wall while doing this exercise. Make sure only the side of your body faces the wall. If your procedure was done on both breasts, start with step 3. 1. Stand with your unaffected side closest to the wall, about 1 foot (30.5 centimeters) away from the wall. Your unaffected side is the side where you did not have your procedure. 2. Reach as high as you can with your unaffected arm. Liliana that point with a piece of tape (see Figure 7) . This will be the goal for your affected arm. 3. Turn your body so your affected side is now closest to the wall. If your procedure was done on both breasts, start with either side closest to the wall. 4. Crawl your fingers up the wall as far as you can. Remember to breathe normally. 5. When you get to the point where you feel a good stretch, but not pain, do the deep breathing exercise. 6. Return to the starting position by crawling your fingers back down the wall. 7. Repeat this movement 5 times. 8. After your last crawl, use a piece of tape to liliana the highest point you reached with your affected arm . This will let you see your progress each time you do the exercise. 9. If your procedure was done on both breasts, repeat the exercise with your other arm. When this exercise starts to feel easier , start doing the movement an extra time. Build up to repeating it 10 times. Forward wall crawls You will need 2 pieces of tape for this exercise. 1. Stand facing a wall. Your toes should be about 6 inches (15 centimeters) from the wall . 2. Reach as high as you can with your unaffected arm. Liliana that point with a piece of tape. This will be the goal for your affected arm. If your procedure was done on both breasts, set your goal using the arm that moves most comfortably. 3. Place both hands against the wall at a level that?s comfortable. Crawl your fingers up the wall as far as you can, keeping them even with each other. Try not to look up toward your hands or arch your back. 4. When you get to the point where you feel a good stretch, but not pain, do the deep breathing exercise. 5. Return to the starting position by crawling your fingers back down the wall. 6. Repeat this movement 5 times. Each time you raise your hands, try to crawl a little bit higher. 7. After the last crawl, use the other piece of tape to liliana the highest point you reached with your affected arm . This will let you see your progress each time you do the exercise. As you become more flexible, you may need to take a step closer to the wall. This will let you reach a little higher. When this exercise starts to feel easier , start doing the movement an extra time. Build up to repeating it 10 times. OT OP Lymphedema Evaluation Current Condition/Medical Diagnosis Referring Provider Dr. Robina Reynaga Medical Diagnoses C50.911 Invasive ductal carcinoma of R breast Treatment Diagnosis Muscle Weakness M61.81 Fatigue R53.8 Date Of Onset Surgery 10/19/23 Other Precautions *Patient will have restrictions/precautions following her surgery on -but no precautions at time of EVAL on 10/16/23 Medical History Medical History Comments Anxiety Depression Hypothyroidism Spinal Stenosis Surgical History Surgical History Back Surgery 2018 Hysterectomy (still has ovaries) Skin Graft after a Right foot infection 2007 Medications Medications Tylenol Abilify Lipitor Cogentin Prozac Neurontin Synthroid Family History Family History of Lymphedema No Current Work Status Current Work Status Retired Current Work Status Comments 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 Biopsy revealed this to be invasive ductal carcinoma, ERPR positive, HER2 negative. Living Situation Current Living Situation Private Home/Apartment (Alone) Current Living Situation Comments Lives with her brother Yash (he will do the cooking, cleaning, laundry, drive her to appointments) Patient Difficulties Patient Difficulties Comments Patient ambulates with FWW Problem List Problem List Limited Knowledge of Lymphedema Treatment/Condition /Precautions,Limited Knowledge of Skin Care & Infection Precautions,Significant Risk For Infection For Lymphedema Related Complications,Does Not Have a HEP,Presents With Impaired Mobility/ROM Exercise History Does Patient Exercise Regularly No Pain Pain Yes Pain Comments / Back (chronic) ROM/Strength ROM/Strength Comments No restrictions in her AROM of bilateral UE's Patient able to reach up to the ceiling, touch the small of her back and behind her head (external rotation) Compression History Does Patient Currently Wear Compression No During Daytime Does Patient Currently Wear Compression No At Night Current Swelling (Location/Pitting/Texture) Pitting Scale: 0 = No pitting 1+ Tissue returns to normal almost immediately 2+ Tissue returns after 15-30 seconds 3+ Tissue returns after 1-1/2 minutes 4+ Tissue returns after 2-3 minutes N/A Tissue no longer pits due to induration Tissue texture: Soft or indurated Lymphedema/Lipedema/CVI Right upper quadrant will be at risk for lymphedema following surgery on 10/19/23. Swelling Comments Education Provided today: Tips for managing swelling After your procedure, you may have some swelling or puffiness in your hand or arm on your affected side. This is normal and usually goes away on its own. If you notice swelling in your hand or arm, follow these tips to help the swelling go down. Raise your arm above the level of your heart and do hand pumps several times a day. To do hand pumps, slowly open and close your fist 10 times. This will help drain the fluid out of your arm. Do not hold your arm straight up over your head for more than a few minutes. This can cause your arm muscles to get tired. Raise your arm to the side a few times a day for about 20 minutes at a time. To do this, sit or lie down on your back. Rest your arm on a few pillows next to you so it?s raised above the level of your heart. If you?re able to sleep on your unaffected side, place 1 or 2 pillows in front of you. Rest your affected arm on them while you sleep. If the swelling does not go down within 4 to 6 weeks, call your surgeon or nurse. Circumferential Measurements Upper Extremity Left Upper Extremity Base of Third Finger (in cm) 7.5 MCP (in cm) 22 Palm (in cm) 24 Distance Between MCP's and Palm 3 Circumference Measurement Smallest Wrist Measurement (in cm) 19.6 Distance Between Palm and Smallest Wrist 4 Circumference Measurement 10 cm Above Smallest Wrist Measurement 24.4 20 cm Above Smallest Wrist Measurement 33 30 cm Above Smallest Wrist Measurement 36 40 cm Above Smallest Wrist Measurement 44 50 cm Above Smallest Wrist Measurement 46.5 Total Girth in cm 257.0 UE Volume A 126 UE Volume B 151.78 UE Volume C 386.68 UE Volume D 660.37 UE Volume E 947 UE Volume F 1277 UE Volume G 1629.81 Upper Extremity Volume Total in cm 5,178.64 Right Upper Extremity Base of Third Finger (in cm) 7.3 MCP (in cm) 22.1 Palm (in cm) 25.5 Distance Between MCP's and Palm 3 Circumference Measurement Smallest Wrist Measurement (in cm) 19.3 Distance Between Palm and Smallest Wrist 4 Circumference Measurement 10 cm Above Smallest Wrist Measurement 24.2 20 cm Above Smallest Wrist Measurement 32.5 30 cm Above Smallest Wrist Measurement 36.5 40 cm Above Smallest Wrist Measurement 42.2 50 cm Above Smallest Wrist Measurement 49 Total Girth in cm 258.6 UE Volume A 135.45 UE Volume B 160.73 UE Volume C 378.04 UE Volume D 644.15 UE Volume E 948.23 UE Volume F 1234.35 UE Volume G 1657.76 Upper Extremity Volume Total in cm 5,158.71 Assessment Assessment 63-year-old female patient was found on screening mammogram to have a Right breast mass. Biopsy revealed this to be invasive ductal carcinoma, ERPR positive, HER2 negative. Patient is undergoing a lumpectomy on 10/19/23 with axillary lymph nodes staged with sentinel lymph node biopsy (with or without axillary dissection at the time of the surgery). On this Eval date, patient was educated regarding purpose of the visit: risk factors, risk reduction practices, provided with a post-surgical home exercise program, given handouts and educated on skin care, correlation of infection / lymphedema with therapist taking baseline measurements of both the R and the L UE. Patient Goals Patient Goals 1. Pt will demonstrate a general understanding of the lymphatic system, s/s of lymphedema, treatment of lymphedema, implications of untreated lymphedema, s/s of infection and the correlation of infection related to lymphedema. 2. Pt will be Independent and compliant with UE HEP, with participation 10 mins 2x/daily . Short Term Goals (# of Weeks) 6 Observation Nurse Goals (# of Weeks) 12 Snf Goals 3.. Pt will be compliant with quarterly assessments for lymphedema surveillance in order to obtain early intervention with best outcomes if needed. Treatment Plan Treatment Plan Evaluation,Edema Control, Manual Therapy,Wound Care/Scar Management,Therapeutic Exercise,Self-Care/Home Management,Education Expected Frequency As Needed Expected Duration Quarterly Certification Certification Statement I Certify That: Therapy Services Provided, Therapy Plan Established, Therapy Plan Reviewed Certification Information Clinic ID # [id number] Initial Certification Date 10/16/23 Recertification Due Date 10/10/24 Provider Signature Required Yes Provider Signature Shows Agreement With POC & Medical Necessity Physician NPI Number Write NPI# Here Physician Comment/Change Comment or Changes Physician Signature & Date Requested Please Sign/Date Here
[2024-01-10 13:05] VITALS: BMI 40.5
--- NOTE | 2024-01-10 15:23 | OT.OPLDN2 ---
OT Outpatient Lymphedema Daily Note OT Outpatient Lymphedema Daily Note* Start: 10/16/23 08:54 Freq: Status: Active Protocol: Document 01/10/24 13:05 MANJIT (Rec: 01/10/24 15:12 MANJIT [id number]) E-signed By KIMBERLY Albarado/Devante, MIRACLE Type of Note Type of Note Type of Note Daily Note,Recert/Progress Note Visit Number 3 Insurance Information Insurance Information Insurance Information Medicaid,Medicare B Height and Weight Height Height 178.7 cm Weight Weight 129.4 kg BMI Body Mass Index (kg/m?) 40.5 BMI Classification Extreme Obesity Obesity Class III Home Program Home Program Home Program Compliant Home Program Specifics Deep breathing can help you relax and ease discomfort and tightness around your incision (surgical cut). It?s also a good way to relieve stress during the day. 1. Sit comfortably in a chair. 2. Take a slow, deep breath in through your nose. Let your chest and belly expand. 3. Breathe out slowly through your mouth. Repeat as many times as you want to. Arm and shoulder exercises Doing arm and shoulder exercises will help you get back your full range of motion on your affected side. Your affected side is the side where you had your procedure. Your range of motion is how much you can safely move a part of your body. With full range of motion, you will be able to: -Move your arm over your head and out to the side. -Move your arm behind your neck. -Move your arm to the middle of your back. When to do these exercises Do these exercises 3 times every day until you can move your affected arm the way you did before your procedure. After that, keep doing them once a day. This often is important if you still feel tightness in your chest, shoulder, or under your affected arm. These exercises can help keep scar tissue from forming in your armpit and shoulder. Scar tissue can limit your arm movements later. Backward shoulder rolls This is a good exercise to start with. It gently stretches your chest and shoulder muscles. 1. Stand or sit comfortably with your arms relaxed at your sides. 2. In a circular motion, bring your shoulders forward, up, backward, and down (see Figure 1). Try to make the ramona as big as you can and move both shoulders at the same time. 3. Repeat this movement 5 times. If you feel tightness across your incision or chest, start with smaller circles. Make them bigger as the tightness lessens. When this exercise starts to feel easier , start doing the movement an extra time. Build up to repeating it 10 times. Shoulder wings This exercise will help you get back outward movement of your shoulder. You can do it while sitting or standing. 1. Place your hands on your chest or collarbone. 2. Raise your elbows out to the side. Raise them as high as you can, up to shoulder level. If you feel discomfort near your incision, hold your position and do the deep breathing exercise. If the discomfort goes away, raise your elbows a little higher. If the discomfort does not go away, do not raise your elbows any higher. 3. Slowly lower your elbows. 4. Repeat this movement 5 times. When you?re done, slowly lower your hands. When this exercise starts to feel easier, start doing the movement an extra time. Build up to repeating it 10 times. Backward arm circles If your procedure was done on both breasts, do this exercise with one arm at a time. Doing it with both arms at once will put too much pressure on your chest. 1. Stand with your feet slightly apart for balance. Raise your affected arm out to the side as high as you can 2. Start making slow, backward circles in the air with your arm. Make sure you?re moving your arm from your shoulder, not your elbow. Keep your elbow straight. 3. Repeat this movement 5 times. Make each ramona larger until they?re as big as you can comfortably make them. If you feel any aching or if your arm gets tired, take a break. Keep going when you feel better. 4. When you?re done, slowly lower your arm to your side. When this exercise starts to feel easier, start doing the movement an extra time. Build up to repeating it 10 times. Forward arm circles Follow the same instructions as for backward arm circles but make slow, forward circles . Make sure to rest your arm for a moment between doing backward and forward arm circles. W exercise You can do this exercise while sitting or standing. 1. Form a ?W? with your arms out to the side and palms facing forward. Try to bring your hands up so they?re even with your face. If you cannot raise your arms that high, bring them to the highest comfortable position. 2. Pinch your shoulder blades together and downward, as if you?re squeezing a pencil between them. Keep squeezing them together and downward for 5 seconds. If you feel discomfort near your incision, hold your position and do the deep breathing exercise. If the discomfort goes away, try to bring your arms back a little further. If the discomfort does not go away, do not reach any further. Hold the furthest position you can and squeeze your shoulder blades together for 5 seconds. 3. Slowly bring your arms back to the starting position. 4. Repeat this movement 5 times. When you?re done, slowly lower your hands. When this exercise starts to feel easier, start doing the movement an extra time. Build up to repeating it 10 times. Back climb You can do this exercise while sitting or standing. You will need a stopwatch, timer, or watch with a second hand for this exercise. 1. Place your hands behind your back. Hold the hand on your affected side with your other hand. If your procedure was done on both breasts, use the arm that moves most easily to hold the other. 2. Slowly slide your hands up the center of your back as far as you can. You should feel a gentle stretch in your shoulder area. Remember to breathe normally. If you feel tightness near your incision, hold your position and do the deep breathing exercise. If the tightness lessens, try to slide your hands up a little further. If it does not, leave your hands where they are. 3. Hold this position for 30 seconds. After 30 seconds, slowly lower your hands. When this exercise starts to feel easier, start holding the position for a little longer. Build up to holding it for 60 seconds (1 minute). Hands behind neck The first few times you do this exercise, do it while lying comfortably on your back on your bed. Place a pillow under your head. You can also roll up a small or medium towel and place it under the middle of your back, along your spine. This will help open up the front of your chest. Once you?re comfortable doing this exercise while lying on your back, you can do it while sitting or standing. 1. Put your hands together on your lap or in front of you. 2. Slowly raise your hands toward your head. Keep your elbows together in front of you, not out to the sides. Keep your head level. Do not bend your neck. Keep your shoulder blades squeezed together. 3. Slide your hands over your head until you reach the back of your neck. When you get to this point, spread your elbows out to the sides. If you feel tightness across your incision or chest, hold your position and do the deep breathing exercise. It?s OK to rest your hands on your head if you need to. If the tightness lessens, continue with the movement. If it does not, do not move any further. 4. Hold the highest position you can for 30 seconds. Use a stopwatch, timer, or watch with a second hand to keep track. Remember to breathe normally. After 30 seconds, slowly bring your elbows back together, slide your hands over your head, and lower your arms. When this exercise starts to feel easier, start holding the position for a little longer. Build up to holding it for 60 seconds (1 minute). Side wall crawls You will need 2 pieces of tape for this exercise. You should not feel pain while doing this exercise. It?s normal to feel some tightness or pulling across the side of your chest. Focus on your breathing until the tightness lessens. Be careful not to turn your body toward the wall while doing this exercise. Make sure only the side of your body faces the wall. If your procedure was done on both breasts, start with step 3. 1. Stand with your unaffected side closest to the wall, about 1 foot (30.5 centimeters) away from the wall. Your unaffected side is the side where you did not have your procedure. 2. Reach as high as you can with your unaffected arm. Liliana that point with a piece of tape (see Figure 7) . This will be the goal for your affected arm. 3. Turn your body so your affected side is now closest to the wall. If your procedure was done on both breasts, start with either side closest to the wall. 4. Crawl your fingers up the wall as far as you can. Remember to breathe normally. 5. When you get to the point where you feel a good stretch, but not pain, do the deep breathing exercise. 6. Return to the starting position by crawling your fingers back down the wall. 7. Repeat this movement 5 times. 8. After your last crawl, use a piece of tape to liliana the highest point you reached with your affected arm . This will let you see your progress each time you do the exercise. 9. If your procedure was done on both breasts, repeat the exercise with your other arm. When this exercise starts to feel easier , start doing the movement an extra time. Build up to repeating it 10 times. Forward wall crawls You will need 2 pieces of tape for this exercise. 1. Stand facing a wall. Your toes should be about 6 inches (15 centimeters) from the wall . 2. Reach as high as you can with your unaffected arm. Liliana that point with a piece of tape. This will be the goal for your affected arm. If your procedure was done on both breasts, set your goal using the arm that moves most comfortably. 3. Place both hands against the wall at a level that?s comfortable. Crawl your fingers up the wall as far as you can, keeping them even with each other. Try not to look up toward your hands or arch your back. 4. When you get to the point where you feel a good stretch, but not pain, do the deep breathing exercise. 5. Return to the starting position by crawling your fingers back down the wall. 6. Repeat this movement 5 times. Each time you raise your hands, try to crawl a little bit higher. 7. After the last crawl, use the other piece of tape to liliana the highest point you reached with your affected arm . This will let you see your progress each time you do the exercise. As you become more flexible, you may need to take a step closer to the wall. This will let you reach a little higher. When this exercise starts to feel easier , start doing the movement an extra time. Build up to repeating it 10 times. OT OP Lymphedema Daily/Progress Note Current Condition/Medical Diagnosis Referring Provider Dr. 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 Her last session in the Rehab clinic was 48 days prior. She was last seen by her Oncologist on 01/03/24. 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 11/22/23: Remeasured L and R UE 's with no significant increases, patient does not report any increased fluid, no restrictions in her AROM, and reports working on the HEP that was given to her at our initial EVAL on 10/16/23. Therapist has reviewed visit f /u note from provider visit on 11/16/23, the following was copied from chart: 63-year-old very pleasant lady, with new diagnosis of Right-sided T1c N0 M0/ stage I A anatomic/prognostic invasive ductal carcinoma the breast ER positive [place] positive HER2 1+, status post lumpectomy and sentinel lymph node dissection, 0/3 lymph nodes, margin re-excision on grade 2 Ki-67%, Oncotype DX recurrence score at 9, distant recurrence risk at 9 years 3%, group average chemo benefit less than 1%, comes to establish care with Medical Oncology on 11/20/2023. -ECOG 1 -discussed pathology, NCCN guidelines, Oncotype DX recurrence score report -discussed that chemotherapy can be deferred at this point, and that she will have excellent prognosis -will place for radiation oncology referral -will place for DEXA scan -will discuss endocrine therapy at her return visit in 4 weeks or so # status post hysterectomy ovaries still in place # menopausal -will request DEXA scan # inframammary fold rash -will place for clotrimazole twice per day, for a minimum of 2 and maximum of 4 weeks 63-year-old female patient was found on screening mammogram to have a Right breast mass. Biopsy revealed this to be invasive ductal carcinoma, ERPR positive, HER2 negative. Living Situation Current Living Situation Private Home/Apartment (Alone) Current Living Situation Comments Lives with her brother Yash (he will do the cooking, cleaning, laundry, drive her to appointments) Patient Difficulties Patient Difficulties Comments Patient ambulates with FWW Problem List Problem List Limited Knowledge of Lymphedema Treatment/Condition /Precautions,Limited Knowledge of Skin Care & Infection Precautions,Significant Risk For Infection For Lymphedema Related Complications,Does Not Have a HEP,Presents With Impaired Mobility/ROM Exercise History Does Patient Exercise Regularly No Exercise Comments Was issued a HEP on EVAL Pain Pain Yes Pain Comments 07/06 Back (chronic) ROM/Strength ROM/Strength Comments No restrictions in her AROM of bilateral UE's Patient able to reach up to the ceiling, touch the small of her back and behind her head (external rotation). 11/21: Unchanged, patient has no restrictions in her AROM, no complaints of tightness of pain in her UE. Compression History Does Patient Currently Wear Compression No During Daytime Does Patient Currently Wear Compression No At Night Current Swelling (Location/Pitting/Texture) Pitting Scale: 0 = No pitting 1+ Tissue returns to normal almost immediately 2+ Tissue returns after 15-30 seconds 3+ Tissue returns after 1-1/2 minutes 4+ Tissue returns after 2-3 minutes N/A Tissue no longer pits due to induration Tissue texture: Soft or indurated Clinical Presentation Area 01/10/24: Presently no s/s of Lymphedema in the UE/R arm Skin Changes Comments Minimal radiation related peau -d orange and rhythm on the right breast.; fullness present below the scar on the right breast. Lymphedema/Lipedema/CVI Right upper quadrant will be at risk for lymphedema following surgery on 10/19/23. Swelling Comments Education Provided today: Tips for managing swelling After your procedure, you may have some swelling or puffiness in your hand or arm on your affected side. This is normal and usually goes away on its own. If you notice swelling in your hand or arm, follow these tips to help the swelling go down. Raise your arm above the level of your heart and do hand pumps several times a day. To do hand pumps, slowly open and close your fist 10 times. This will help drain the fluid out of your arm. Do not hold your arm straight up over your head for more than a few minutes. This can cause your arm muscles to get tired. Raise your arm to the side a few times a day for about 20 minutes at a time. To do this, sit or lie down on your back. Rest your arm on a few pillows next to you so it?s raised above the level of your heart. If you?re able to sleep on your unaffected side, place 1 or 2 pillows in front of you. Rest your affected arm on them while you sleep. If the swelling does not go down within 4 to 6 weeks, call your surgeon or nurse. Circumferential Measurements Upper Extremity Left Upper Extremity Base of Third Finger (in cm) 7.2 MCP (in cm) 21.8 Palm (in cm) 23 Distance Between MCP's and Palm 3 Circumference Measurement Smallest Wrist Measurement (in cm) 19.1 Distance Between Palm and Smallest Wrist 4 Circumference Measurement 10 cm Above Smallest Wrist Measurement 24.3 20 cm Above Smallest Wrist Measurement 32.8 30 cm Above Smallest Wrist Measurement 36.8 40 cm Above Smallest Wrist Measurement 42.5 50 cm Above Smallest Wrist Measurement 44 Total Girth in cm 251.5 Previous Girth Total in cm 257.0 Difference in Girth in cm -5.5 Upper Extremity Volume Total in cm 5,245.51 Right Upper Extremity Base of Third Finger (in cm) 7.1 MCP (in cm) 21.9 Palm (in cm) 25.0 Distance Between MCP's and Palm 3 Circumference Measurement Smallest Wrist Measurement (in cm) 19.0 Distance Between Palm and Smallest Wrist 4 Circumference Measurement 10 cm Above Smallest Wrist Measurement 23 20 cm Above Smallest Wrist Measurement 32.5 30 cm Above Smallest Wrist Measurement 36.1 40 cm Above Smallest Wrist Measurement 42 50 cm Above Smallest Wrist Measurement 47 Total Girth in cm 253.6 Previous Girth Total in cm 258.6 Difference in Girth in cm -5.0 Upper Extremity Volume Total in cm 4,986.21 Comments/Additional Measurements Comments/Additional Measurements Measurements taken: 01/10/24 ( no increases) 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 16 lbs, 2 pt. 18 lbs L (dominant) die designer apprentice position 1 ( 68lb) position 2 (85lb) L Lateral Pinch 20 lbs, 3 pt. 16, 2 pt. 16 lbs Treatment Therapeutic Exercise Minutes (minutes) 33 Therapeutic Exercise Comments Remeasured L and R UE's with no significant increases, patient does not report any increased fluid, no restrictions in her AROM, and reports working on the HEP that was given to her at our initial EVAL on 10/16/23. Did a quick review of program to ensure accuracy as well as look at AROM. Reviewed: Deep breathing can help you relax and ease discomfort and tightness around your incision (surgical cut). It?s also a good way to relieve stress during the day. 1. Sit comfortably in a chair. 2. Take a slow, deep breath in through your nose. Let your chest and belly expand. 3. Breathe out slowly through your mouth. Repeat as many times as you want to. Arm and shoulder exercises Doing arm and shoulder exercises will help you get back your full range of motion on your affected side. Your affected side is the side where you had your procedure. Your range of motion is how much you can safely move a part of your body. With full range of motion, you will be able to: -Move your arm over your head and out to the side. -Move your arm behind your neck. -Move your arm to the middle of your back. When to do these exercises Do these exercises 3 times every day until you can move your affected arm the way you did before your procedure. After that, keep doing them once a day. This often is important if you still feel tightness in your chest, shoulder, or under your affected arm. These exercises can help keep scar tissue from forming in your armpit and shoulder. Scar tissue can limit your arm movements later. Backward shoulder rolls This is a good exercise to start with. It gently stretches your chest and shoulder muscles. 1. Stand or sit comfortably with your arms relaxed at your sides. 2. In a circular motion, bring your shoulders forward, up, backward, and down (see Figure 1). Try to make the ramona as big as you can and move both shoulders at the same time. 3. Repeat this movement 5 times. If you feel tightness across your incision or chest, start with smaller circles. Make them bigger as the tightness lessens. When this exercise starts to feel easier , start doing the movement an extra time. Build up to repeating it 10 times. Shoulder wings This exercise will help you get back outward movement of your shoulder. You can do it while sitting or standing. 1. Place your hands on your chest or collarbone. 2. Raise your elbows out to the side. Raise them as high as you can, up to shoulder level. If you feel discomfort near your incision, hold your position and do the deep breathing exercise. If the discomfort goes away, raise your elbows a little higher. If the discomfort does not go away, do not raise your elbows any higher. 3. Slowly lower your elbows. 4. Repeat this movement 5 times. When you?re done, slowly lower your hands. When this exercise starts to feel easier, start doing the movement an extra time. Build up to repeating it 10 times. Backward arm circles If your procedure was done on both breasts, do this exercise with one arm at a time. Doing it with both arms at once will put too much pressure on your chest. 1. Stand with your feet slightly apart for balance. Raise your affected arm out to the side as high as you can 2. Start making slow, backward circles in the air with your arm. Make sure you?re moving your arm from your shoulder, not your elbow. Keep your elbow straight. 3. Repeat this movement 5 times. Make each ramona larger until they?re as big as you can comfortably make them. If you feel any aching or if your arm gets tired, take a break. Keep going when you feel better. 4. When you?re done, slowly lower your arm to your side. When this exercise starts to feel easier, start doing the movement an extra time. Build up to repeating it 10 times. Forward arm circles Follow the same instructions as for backward arm circles but make slow, forward circles . Make sure to rest your arm for a moment between doing backward and forward arm circles. W exercise You can do this exercise while sitting or standing. 1. Form a ?W? with your arms out to the side and palms facing forward. Try to bring your hands up so they?re even with your face. If you cannot raise your arms that high, bring them to the highest comfortable position. 2. Pinch your shoulder blades together and downward, as if you?re squeezing a pencil between them. Keep squeezing them together and downward for 5 seconds. If you feel discomfort near your incision, hold your position and do the deep breathing exercise. If the discomfort goes away, try to bring your arms back a little further. If the discomfort does not go away, do not reach any further. Hold the furthest position you can and squeeze your shoulder blades together for 5 seconds. 3. Slowly bring your arms back to the starting position. 4. Repeat this movement 5 times. When you?re done, slowly lower your hands. When this exercise starts to feel easier, start doing the movement an extra time. Build up to repeating it 10 times. Back climb 1. Place your hands behind your back. Hold the hand on your affected side with your other hand. If your procedure was done on both breasts, use the arm that moves most easily to hold the other. 2. Slowly slide your hands up the center of your back as far as you can. You should feel a gentle stretch in your shoulder area. Remember to breathe normally. If you feel tightness near your incision, hold your position and do the deep breathing exercise. If the tightness lessens, try to slide your hands up a little further. If it does not, leave your hands where they are. 3. Hold this position for 30 seconds. After 30 seconds, slowly lower your hands. When this exercise starts to feel easier, start holding the position for a little longer. Build up to holding it for 60 seconds (1 minute). Hands behind neck The first few times you do this exercise, do it while lying comfortably on your back on your bed. Place a pillow under your head. You can also roll up a small or medium towel and place it under the middle of your back, along your spine. This will help open up the front of your chest. Once you?re comfortable doing this exercise while lying on your back, you can do it while sitting or standing. 1. Put your hands together on your lap or in front of you. 2. Slowly raise your hands toward your head. Keep your elbows together in front of you, not out to the sides. Keep your head level. Do not bend your neck. Keep your shoulder blades squeezed together. 3. Slide your hands over your head until you reach the back of your neck. When you get to this point, spread your elbows out to the sides. If you feel tightness across your incision or chest, hold your position and do the deep breathing exercise. It?s OK to rest your hands on your head if you need to. If the tightness lessens, continue with the movement. If it does not, do not move any further. 4. Hold the highest position you can for 30 seconds. Remember to breathe normally. After 30 seconds, slowly bring your elbows back together, slide your hands over your head, and lower your arms. When this exercise starts to feel easier, start holding the position for a little longer. Build up to holding it for 60 seconds (1 minute). Side wall crawls You will need 2 pieces of tape for this exercise. You should not feel pain while doing this exercise. It?s normal to feel some tightness or pulling across the side of your chest . Focus on your breathing until the tightness lessens. Be careful not to turn your body toward the wall while doing this exercise. Make sure only the side of your body faces the wall. If your procedure was done on both breasts, start with step 3. 1. Stand with your unaffected side closest to the wall, about 1 foot (30.5 centimeters ) away from the wall. Your unaffected side is the side where you did not have your procedure. 2. Reach as high as you can with your unaffected arm. Liliana that point with a piece of tape. This will be the goal for your affected arm. 3. Turn your body so your affected side is now closest to the wall. If your procedure was done on both breasts, start with either side closest to the wall. 4. Crawl your fingers up the wall as far as you can. Remember to breathe normally. 5. When you get to the point where you feel a good stretch, but not pain, do the deep breathing exercise. 6. Return to the starting position by crawling your fingers back down the wall. 7. Repeat this movement 5 times. 8. After your last crawl, use a piece of tape to liliana the highest point you reached with your affected arm. This will let you see your progress each time you do the exercise. 9. If your procedure was done on both breasts, repeat the exercise with your other arm. When this exercise starts to feel easier, start doing the movement an extra time. Build up to repeating it 10 times. Forward wall crawls You will need 2 pieces of tape for this exercise. 1. Stand facing a wall. Your toes should be about 6 inches (15 centimeters) from the wall . 2. Reach as high as you can with your unaffected arm. Liliana that point with a piece of tape. This will be the goal for your affected arm. If your procedure was done on both breasts, set your goal using the arm that moves most comfortably. 3. Place both hands against the wall at a level that?s comfortable. Crawl your fingers up the wall as far as you can, keeping them even with each other. Try not to look up toward your hands or arch your back. 4. When you get to the point where you feel a good stretch, but not pain, do the deep breathing exercise. 5. Return to the starting position by crawling your fingers back down the wall. 6. Repeat this movement 5 times. Each time you raise your hands, try to crawl a little bit higher. 7. After the last crawl, use the other piece of tape to liliana the highest point you reached with your affected arm . This will let you see your progress each time you do the exercise. As you become more flexible, you may need to take a step closer to the wall. This will let you reach a little higher. When this exercise starts to feel easier , start doing the movement an extra time. Build up to repeating it 10 times. Next Re-check session will be in Feb/Mar 2024. Total Occupational Therapy Minutes 33 Assessment Assessment 01/10/24: Patient returns to the clinic for Lymphedema Breast Cancer Surveillance program. Her last session in the Rehab clinic was 48 days prior. She was last seen by her Oncologist on 01/03/24. 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 63-year-old female patient was found on screening mammogram to have a Right breast mass. Biopsy revealed this to be invasive ductal carcinoma, ERPR positive, HER2 negative. Patient is undergoing a lumpectomy on 10/19/23 with axillary lymph nodes staged with sentinel lymph node biopsy (with or without axillary dissection at the time of the surgery). On this Eval date, patient was educated regarding purpose of the visit: risk factors, risk reduction practices, provided with a post-surgical home exercise program, given handouts and educated on skin care, correlation of infection / lymphedema with therapist taking baseline measurements of both the R and the L UE. Next Re-check session will be in Feb/Mar 2024. Patient Goals Patient Goals 1. Pt will demonstrate a general understanding of the lymphatic system, s/s of lymphedema, treatment of lymphedema, implications of untreated lymphedema, s/s of infection and the correlation of infection related to lymphedema. -progressing, continue 2. Pt will be Independent and compliant with UE HEP, with participation 10 mins 2x/daily . -GOAL MET 11/22/23 Short Term Goals (# of Weeks) 6 Fpc Goals (# of Weeks) 12 Fpc Goals 3. Pt will be compliant with quarterly assessments for lymphedema surveillance in order to obtain early intervention with best outcomes if needed. - progressing, continue Treatment Plan Treatment Plan Evaluation,Edema Control, Manual Therapy,Wound Care/Scar Management,Therapeutic Exercise,Self-Care/Home Management,Education Other Treatment Plan Breast Cancer Surveillance program Expected Frequency As Needed Expected Duration Quarterly Occupational Therapy Billing Units Treatment Minutes Timed Treatment Minutes 33 Total Treatment Minutes 33 Billing Units Therapeutic Exercise 2 Certification Statement Certification Statement I Certify That: Therapy Services Provided, Therapy Plan Established, Therapy Plan Reviewed Recertification Information Recertification Information Initial Certification Date 10/16/23 Recertification Start Date 01/10/24 Recertification Due Date 01/09/25 Reasons to Continue Skilled Therapy 01/10/24: Patient returns to the clinic for Lymphedema Breast Cancer Surveillance program. Her last session in the Rehab clinic was 48 days prior. She was last seen by her Oncologist on 01/03/24. 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 Rehabilitation Potential Rehab potential is excellent as patient has been proactive with her care. Click To Default 'Per treatment plan' Per treatment plan Continued Plan of Care and Interventions Per treatment plan Breast Cancer Surveillance program Quarterly sessions Provider Signature Required Yes Provider Signature Shows Agreement With POC & Medical Necessity Physician NPI Number Write NPI# Here Physician Comment/Change Comment or Changes Physician Signature & Date Requested Please Sign/Date Here
== END 2024-05-09 23:59 | disposition home or self-care (01) ==
PROVIDERS: PCP Family Medicine; Visit Provider Surgery
DX: C50.911 Malignant neoplasm of unspecified site of right female breast (principal); M62.81 Muscle weakness (generalized); R53.83 Other fatigue; Z51.89 Encounter for other specified aftercare
CPT/HCPCS: 97110; 97166; X5282

== ENCOUNTER 2024-04-11 14:10 | Outpatient (RCR) | payer MEDICARE, MEDICAID, SELFPAY ==
--- NOTE | 2023-11-21 11:33 | ONC.NURNOTE ---
Addendum entered by Romelia Chakraborty 12/04/23 13:48: Patient will begin radiation 12/10 to 12/14. Patient will follow up with Dr. Hoffman 12/31 to review DEXA and discuss endocrine therapy. Original Note: Radiation Oncology referral [facility]. They will call patient to schedule.
== END 2024-05-18 23:59 | disposition home or self-care (01) ==
LOC: CCIC 14:10
PROVIDERS: PCP Family Medicine; Visit Provider Physician Assistant
DX: C50.911 Malignant neoplasm of unspecified site of right female breast (principal); Z17.0 Estrogen receptor positive status [ER+]; Z79.811 Long term (current) use of aromatase inhibitors
CPT/HCPCS: 99202; 99204; 99205; 99213; 99214; G0463

== ENCOUNTER 2024-07-11 13:47 | Outpatient (RCR) | payer MEDICARE, SELFPAY | END 2025-01-07 23:59 | disposition home or self-care (01) | LOC: CCIC 13:47 | PROVIDERS: PCP Family Medicine; Visit Provider Physician Assistant | DX: C50.911 Malignant neoplasm of unspecified site of right female breast (principal); Z17.0 Estrogen receptor positive status [ER+]; Z79.811 Long term (current) use of aromatase inhibitors | CPT/HCPCS: 99214; G0463 ==